=== PATIENT | male | born 1950 | race Caucasian/White ===

== ENCOUNTER → 2016-10-12 | Outpatient (CLI) | payer OTHER, MEDICARE ==
[~2016-10-12] MED LIST: ASPEC325 PO; ATOR-22 PO; CINN1CAP2 PO; CLX20; GLC500; OMEGCAP2; OXYC7.5T78 PO; TAMS0.4C38 PO
--- NOTE | 2016-10-13 05:50 | PAP/PSG TECHNICIAN REPORT ---
[facility] Credit Collection Associate Polysomnogram Report Study name: None Report date: 10/13/2016 Study date: 10/12/2016 Referring Physician: Jagdeep Gonzalez Pulmonary Name: ANTONIA AYALA Interpreting Physician: Lj Gutierrez M.D. Date of : 1950 Credit Collection Associate: Mouna Maher RPSGT. Sex: Male Age: 66 StudyType: PSG Weight: 209 lbs Height: 66 years, Height 5' 8" Neck Circum:17inches BMI: 31.77 Medications: ASA 81mg, Atorvastatin 20mg, Escitalopram 20mg, Fexofenadine HCl 180mg, Lisinopril 5mg, Oxycodone-Acetaminophen 5-325mg, Tamsulosin HCl 0.4mg Patient History Study started on room air with no ETCO2 monitoring in room #6. 66 yr old male here tonight for a diagnostic psg. He has a history of a closed head injury (he fell off of a ladder) and DM. He snores and has witnessed apnea. His neck circ=17inches. Parameters Monitored NPSG: E1-M2, E2-M1, Fp1-M2, Fp2-M1, F3-M2, F4-M2, F4-M1, C3-M2, C4-M2, C4-M1, O1-M2, O2-M2, O2-M1, T3-M2, T4-M1, P3-M2, P4-M1, CHIN1, CHIN2, HR, EKG, Legs, PFLOW, SNOR, FLOW, CFLOW, Tidal Volume, THOR, ABDO, SpO2, PLTH, CPRESS, ETCO2 Wave, ETCO2, pH Sleep Architecture Sleep Stages Time at Lights Off 8:56:33 PM STAGES Time (min.) TST (%) Time at Lights On 5:38:03 AM Wake 137.5 -- Total Recording Time (TRT) 507.00 min. N1 42.0 11 Total Sleep Period (TSP) 436.5 min. N2 266.5 72 Total Sleep Time (TST) 369.5min. N3 21.0 6 Awake Time 137.5 min. REM 40.0 11 Wake after Sleep Onset 81.5 min. Sleep Efficiency (SE) 73 % Sleep Onset Latency (MODE) 70.5 min. Number of Stage 1 Shifts None Awakenings 30 Stage Changes 143 Number of REM periods 3 REM 40.0 11 REM Latency 288.0 min. NREM 329.5 89 Body Position Analysis Supine Right Left Side Prone Vertical Total Sleep Time (min.) 100.8 110.7 201.8 312.47 0.0 0.0 Total Sleep Time (%) 15% 30% 55% 85 0% N/A% Total Sleep Time REM (min.) 0.0 3.5 36.5 None 0.0 0.0 Total Sleep Time NREM (min.) 57.0 107.2 165.3 None 0.0 0.0 Intermittent Wake (min.) 43.8 13.1 80.6 None 0.0 0.0 Total Sleep Period (%) 17% None None None None None Arousals Myoclonus (PLM) * Events Count Index Events Count Index Spontaneous 17 3 Events Awake (PLMW) 336 146.6 Respiratory 2 0.3 Events Asleep w/ Arousal (PLMA) 44 7.1 PLM 43 7 Events Asleep w/o Arousal (PLMS) 417 67.7 Snoring 7 1 Total Asleep 461 74.9 Total 69 11 Total 797 94 Respiratory Analysis * CA OA MA CH H RERA Total Count 2 0 0 0 5 0 7 Index 0.3 0.0 0.0 0 0.8 0 1.1 Mean Duration 12.2 0.0 0.0 0.00 40.1 0.0 32.1 Longest Duration 12.3 0.0 0.0 0.00 0.0 0.0 63.2 Respiratory Event Summary Total Supine ~Supine Right Left Prone REM NREM Apneas Count 2 0 2 0 2 N/A 2 0 Index 0.3 0 0 0.0 0.6 N/A 3 0 Hypopneas (4% Desat) Count 5 3 2 1 1 N/A 0 5 Index 0.8 3.2 0 0.5 0.3 N/A 0.0 0.9 Apneas & All Hypopneas Count 7 3 4 1 3 N/A 2 5 Index 1.1 3 1 1 1 N/A 3.0 0.9 Respiratory Events (Plaster Maker+All Hyp+RERA) Count 7 3 4 1 3 N/A 2 5 Index 1.1 3 1 0.5 0.9 N/A 3.0 0.9 Respiratory Related Arousal Count 2 3 0 0 0 N/A 0 2 Index 0.3 2 0 0 0 N/A 0 0 Snoring Analysis Supine Right Left Prone REM NREM Total Snore duration 21.2 min Snores count 247 455 236 N/A 1 937 938 Snore mean duration 1.4 Sec Snores index 260 247 70 N/A 1.5 170.6 152.3 TST with snoring (%) 5.7% Desaturation Event Summary: Minimum %SpO2 Event Count Mean/Min/Max Duration(sec.) Desaturation Index % Time In Bed > 90 15 24.2 / 11.5 / 52.5 4.3 43.3 86 - 90 8 25.4 / 6.5 / 52.5 1.8 56.5 81 - 85 1 9.3 / 9.3 / 9.3 90.6 0.1 76 - 80 0 N/A 0.0 0.0 71 - 75 0 N/A 0.0 0.0 66 - 70 0 N/A 0.0 0.0 61 - 65 0 N/A 0.0 0.0 56 - 60 0 N/A 0.0 0.0 51 - 55 0 N/A 0.0 0.0 < 50 0 N/A 0.0 0.0 Total REM NREM Awake <50% 0.0 min. 0.0 min. 0.0 min. 0.0 min. 51 - 60% 0.0 min. 0.0 min. 0.0 min. 0.0 min. 61 - 70% 0.0 min. 0.0 min. 0.0 min. 0.0 min. 71 - 80% 0.0 min. 0.0 min. 0.0 min. 0.0 min. 81 - 90% 270.6 min. 21.9 min. 189.8 min. 59.0 min. 91 - 100% 207.0 min. 17.4 min. 125.8 min. 63.7 min. Average 90 90 90 91 Minimum SpO2 82 87 82 82 Desaturation Event Index 2.2 0.0 1.8 4.8 # Desat. Events below 89% 9 N/A 5 4 Time(%) with Saturation below 89% 6.3 0.1 5.2 1.0 Time(min.) with Saturation below 89% 30.3 0.7 24.6 5.0 Time (mins) REM (mins) NREM (mins) % of TST SpO2 Below 90% 9 N/A N9 23.3 SpO2 Below 88% 3 0 0 1 Heart Rate Analysis Min (bpm) Max (bpm) Average (bpm) Awake 37 173 57 NREM 44 145 52 REM 44 60 50 Overall 44 145 52 Supplemental O2 Values Minimum O2 level: None Value Start Time End Time Credit Collection Associate Comments Mr. Ayala slept in the right, left and supine positions. No cardiac arrhythmia noted. PLM's noted. No bruxism noted. Snoring was noted and scored as a 2 on a scale of 1 through 5. (0=no snoring, 5=snoring loud enough to be heard through a closed door or down the thao way). He awoke to use the restroom 1 time during the night. He stated that he slept worse than when at home. The final report will be interpreted and signed by a sleep physician. The completed physician report will then be placed in the patient medical record. Therapy (cm H2O) 0 TIB (min.) 507.0 TST (min.) 369.5 Sleep Onset (min.) 70.5 REM Onset From Sleep (min.) 288.0 Sleep Efficiency % 73 Wakefulness (%) 26 Wakefulness (min.) 137.5 NREM 1 (%) 11 NREM 1 (min.) 42.0 NREM 2 (%) 72 NREM 2 (min.) 266.5 NREM 3 (%) 6 NREM 3 (min.) 21.0 REM (%) 11 REM (min.) 40.0 # Arousals 69 Arousal Index 11 # Snore 938 Snore Index 152.3 AHI 1.1 AHI Supine 3 AHI Non-Supine 1 NREM AHI 0.9 REM AHI 3.0 RDI 1.1 # Obstructive Apnea 0 # Central Apnea 2 # Mixed Apnea 0 # Hypopneas 5 RERAs 0 Total Respiratory Events 10 Time Below SpO2 89% (min.) 25.3 Mean NREM SpO2 (%) 90 Mean REM SpO2 (%) 90 Mean Sleep SpO2 (%) 90 Min NREM SpO2 (%) 82 Min REM SpO2 (%) 87 Position Supine (min.) 100.8 Position Non-supine (min.) 312.5 LM Index Sleep 74.9 LM Index NREM 83.0 LM Index REM 7.5 Mean Heart Rate (bpm) 52 Min Heart Rate (bpm) 44
--- NOTE | 2016-10-14 02:59 | POLYSOMNOGRAPH REPORT ---
CLINICAL DATA: A 66-year-old male with BMI of 31.8, referred by Dr. Gonzalez and Dr. Edgar Tsang for a sleep study. The patient has a history of closed head injury with snoring and witnessed apnea. SLEEP ARCHITECTURE: Total sleep period was 436.5 minutes. Total sleep time was 369.5 minutes divided between 329.5 minutes of non-REM sleep and 40 minutes of REM sleep. Sleep onset latency was delayed at 70.5 minutes. REM latency was delayed at 288 minutes. Sleep efficiency was reduced at 73%. Wake after sleep onset was 81.5 minutes. Sleep consisted of stage N1 11%, N2 72%. N3 6%, REM 11%. AROUSAL DATA: 69 arousals were recorded for an index of 11 per hour. 43 were due to PLM events. PLM DATA: Markedly elevated limb movements during sleep were noted. There were 461 limb movements during sleep noted for an index of 75 per hour with an arousal index of 7.1 per hour. RESPIRATORY DATA: No significant sleep apnea was seen. AHI was 1.1. There were 2 central apneic episodes. The longest apneic episode was 12.3 seconds. There were 5 hypopneic episodes. The mean duration of hypopnea was 40.1 seconds. OXIMETRY DATA: No significant hypoxemia was seen. Oxygen marline was 82% during non-REM sleep. Mean saturation was 90%. Time below 88% was 3 minutes. EKG: Heart rates ranged from 44-145 beats per minute. No arrhythmias were noted. GRADALL OPERATOR'S COMMENTS: The patient slept in the right, left, and supine positions. Snoring was moderate, rated 2 on a scale of 1-5. He did have frequent PLMs through the night with arousals and fragmentation of sleep architecture. IMPRESSION: 1. No evidence of clinically significant sleep apnea/hypopnea or nocturnal hypoxemia. 2. Very frequent limb movement events during sleep consistent with severe periodic limb movement disorder with frequent arousals. RECOMMENDATIONS: If clinically indicated, the patient could be considered for workup and evaluation for restless leg syndrome/PLMD and possible treatment. Clinical correlation is needed. QUINCYD
== END | disposition home or self-care (01) ==
LOC: C.NEUR 20:00
PROVIDERS: ATTEND Internal Medicine Pulmonary Disease
DX: G47.30 Sleep apnea, unspecified (principal)

== ENCOUNTER → 2016-10-18 | Outpatient (CLI) | payer OTHER, MEDICARE ==
[2016-10-18 13:28] LABS: ALT/SGPT 30 U/L (12-78); AST/SGOT 18 U/L (15-37); BLOOD UREA NITROGEN 14 mg/dl (7-18); BUN/CREATININE RATIO 17.7 (10-20); CALCIUM 8.7 mg/dl (8.5-10.1); CARBON DIOXIDE 28 mmol/L (21-32); CHLORIDE 104 mmol/L (98-107); CHOLESTEROL 110 mg/dl (0-200); CREATININE 0.81 mg/dl (0.60-1.40); GLUCOSE 91 mg/dl (70-99); POTASSIUM 4.5 mmol/L (3.5-5.1); SODIUM 138 mmol/L (136-145)
[2016-10-18 13:32] LABS: CHOLESTEROL/HDL RATIO 2.5; HDL CHOLESTEROL 44 mg/dl; LDL CHOLESTEROL CALCULATED 56 mg/dl; PROSTATE SPECIFIC ANTIGEN 0.554 ng/ml (0.000-4.000); TRIGLYCERIDES 51 mg/dl (0-150); VERY LOW DENSITY LIPOPROT CALC 10 mg/dl
[2016-10-18 13:52] LABS: ESTIMATED AVERAGE GLUCOSE 120 mg/dl; HA1C FLAG Normal (Normal)
== END | disposition home or self-care (01) ==
LOC: C.LABMFLN 09:01
PROVIDERS: ATTEND Family Medicine
DX: E78.00 Pure hypercholesterolemia, unspecified (principal); E11.40 Type 2 diabetes mellitus with diabetic neuropathy, unspecified; Z12.5 Encounter for screening for malignant neoplasm of prostate

== ENCOUNTER → 2016-10-24 | Outpatient (CLI) | payer OTHER, MEDICARE ==
[~2016-10-24] VITALS: Ht 170.2 cm; Wt 95.3 kg
[2016-10-24 15:32] VITALS: BP 126/75; PULSE 66; Ht 170.2 cm; Wt 95.3 kg
== END | disposition home or self-care (01) ==
LOC: C.NEUR 13:55
PROVIDERS: ATTEND Internal Medicine Pulmonary Disease
DX: G47.61 Periodic limb movement disorder (principal)

== ENCOUNTER → 2017-04-19 | Outpatient (CLI) | payer OTHER, MEDICARE ==
[2017-04-19 13:25] LABS: ESTIMATED AVERAGE GLUCOSE 123 mg/dl; HA1C FLAG Normal (Normal)
[2017-04-19 13:37] LABS: ALT/SGPT 30 U/L (12-78); AST/SGOT 20 U/L (15-37); BLOOD UREA NITROGEN 12 mg/dl (7-18); BUN/CREATININE RATIO 13.3 (10-20); CALCIUM 8.6 mg/dl (8.5-10.1); CARBON DIOXIDE 28 mmol/L (21-32); CHLORIDE 106 mmol/L (98-107); CHOLESTEROL 113 mg/dl (0-200); CREATININE 0.91 mg/dl (0.60-1.40); GLUCOSE 106 mg/dl (70-99); POTASSIUM 4.2 mmol/L (3.5-5.1); SODIUM 140 mmol/L (136-145)
[2017-04-19 13:42] LABS: ALB/GLOB RATIO 1.2 (0.9-2); ALKALINE PHOSPHATASE 86 U/L (45-117); CHOLESTEROL/HDL RATIO 3.1; HDL CHOLESTEROL 37 mg/dl; LDL CHOLESTEROL CALCULATED 59 mg/dl; TRIGLYCERIDES 84 mg/dl (0-150); VERY LOW DENSITY LIPOPROT CALC 17 mg/dl
== END | disposition home or self-care (01) ==
LOC: C.LABMFLN 08:37
PROVIDERS: ATTEND Family Medicine
DX: I25.10 Atherosclerotic heart disease of native coronary artery without angina pectoris (principal); E11.40 Type 2 diabetes mellitus with diabetic neuropathy, unspecified

== ENCOUNTER 2017-07-12 12:04 | Emergency (ER) | payer OTHER, MEDICARE ==
[~2017-07-12] VITALS: Ht 170.2 cm; Wt 88.9 kg
[2017-07-12 12:06] VITALS: TEMP 36.7; Ht 170.2 cm; Wt 88.9 kg
[2017-07-12] MEDS ORDERED: SODIUM CHLORIDE 0.9% 1000ML 1,000 ML IV STA (12:39)
[2017-07-12] MEDS ORDERED: OPTIRAY 320 IV PRN (12:45)
[2017-07-12 13:19] LABS: URINE APPEARANCE CLEAR (CLEAR); URINE BILIRUBIN NEG (NEG); URINE COLOR YELLOW; URINE EPITHELIAL CELL AUTO 0-5 /lpf (0-5); URINE NITRITE NEG (NEG); URINE SPECIFIC GRAVITY 1.017 (1.000-1.030); UROBILINOGEN NEG (NEG); ZZUR CULT IF INDIC CLEAN CATCH NO
[2017-07-12 13:20] LABS: MANUAL MICROSCOPIC REQUIRED? NO; REVIEW REQ? NO
[2017-07-12] MEDS ORDERED: KLN5X PO (13:21)
[2017-07-12] MEDS ORDERED: FLM4 PO (13:21)
[2017-07-12] MEDS ORDERED: LSN5 PO (13:21)
[2017-07-12] MEDS ORDERED: ASPI81TA28 PO (13:21)
[2017-07-12] MEDS ORDERED: LXP/20 PO (13:21)
[2017-07-12 13:22] LABS: BASO % 0.4 %; BASO ABS # 0.04 K/uL (0-0.2); COMPLETE YES; EOS % 1.7 %; HEMATOCRIT 41.8 % (42-52); IG% 0.3 %; LYMPH % 12.4 %; LYMPH ABS # 1.28 K/uL (1.2-3.4); MEAN CELL VOLUME 92.9 fL (80-100); MEAN CORPUSCULAR HGB CONC 34.4 g/dl (32-36); MEAN PLATELET VOLUME 10.7 fL (7.4-10.4); MONO % 8.1 %; NEUT % 77.1 %; PLATELET COUNT 307 K/uL (130-400); WHITE BLOOD COUNT 10.34 K/uL (4.8-10.8)
[2017-07-12 13:30] LABS: BUN/CREATININE RATIO 19.9 (10-20); CALCIUM 8.9 mg/dl (8.5-10.1); CREATININE 0.81 mg/dl (0.60-1.40); POTASSIUM 4.4 mmol/L (3.5-5.1)
--- NOTE | 2017-07-12 15:37 | DIAGNOSTIC IMAGING REPORT ---
ABDOMEN AND PELVIS CT WITH IV CONTRAST CT DOSE: 613.14 mGy.cm HISTORY: Acute generalized abdominal pain. Initial exam abd pain TECHNIQUE: Multiaxial CT images of the abdomen and pelvis were performed following the use of intravenous contrast. A dose lowering technique was utilized adhering to the principles of ALARA. COMPARISON STUDY: None. FINDINGS: Imaged cardiac chambers are moderately enlarged. Coronary arterial calcifications are noted. Subpleural reticular opacities of the lung bases, left greater than right suggest atelectasis. There are a few nodular and groundglass opacities of the lung bases measuring up to 4 mm with some tree-in-bud nodularity suggesting bronchiolitis. Mild bronchial wall thickening also noted within the lung bases. No pneumoperitoneum. There are a few scattered indeterminate low attenuating lesions throughout the liver within both the right and left hepatic lobes, largest of which measures 11 mm within the right hepatic lobe, image 10 series 2. No intrahepatic biliary ductal dilation. Spleen is unremarkable. Moderate pancreatic atrophy. There are a few low attenuating subcentimeter lesions of the right kidney, largest of which measures 5 mm suggesting renal cysts, however too small to characterize. Kidneys, ureters and urinary bladder are unremarkable otherwise. Prostamegaly. The urinary bladder is unremarkable. Post surgical changes of the right scrotal region. There is moderate atherosclerotic plaquing of the abdominal aorta. No aneurysm or dissection. Multifocal hazy enlarged lymph nodes are seen within the retroperitoneum periaortic and aortocaval distribution. Example, periaortic lymph node measuring 2.1 x 1.5 cm seen on image 171 series 3. Aortocaval lymph node on image 193 series 3 measures 1.6 x 1.3 cm. Enlarged gastrohepatic lymph node measures 2.3 x 1.8 cm on image 100 series 3. Prominent periportal lymph nodes also seen. There is haziness and nodularity within the distribution of the gastrohepatic ligament. There is mild soft tissue thickening within the region of the gastroesophageal junction and gastric cardia without discrete mass identified. No bowel obstruction. Moderate volume of formed stool is seen throughout the large bowel. No evidence of acute appendicitis. Soft tissues are unremarkable. There is an indeterminate peripherally sclerotic lucent lesion of the left ilium, 1.8 x 1.2 cm adjacent to the SI joint. Lucent structure of the left anterior femoral head neck junction suggests synovial herniation pit. Endplate changes are seen throughout the thoracolumbar spine. IMPRESSION: 1. Multiple pathologically enlarged lymph nodes of the retroperitoneum with surrounding fat stranding are noted in addition to enlarged gastrohepatic and prominent periportal lymph nodes, suspicious for metastasis or lymphoproliferative disease. 2. Soft tissue thickening of the gastroesophageal junction and gastric cardia without discrete mass is noted which can be correlated with endoscopy. 3. Multiple low attenuating lesions scattered throughout the liver measuring up to 11 mm are suspicious for possible metastasis. Attention at follow-up recommended. 4. Prostamegaly. 5. Subpleural reticular and nodular opacities of the lung bases suggest infectious or inflammatory bronchiolitis/pneumonitis. Electronically signed by: Peng Allen M.D. 07/12/2017 3:36 PM Dictated Date/Time: 07/12/2017 3:23 PM
[2017-07-12 16:42] VITALS: BP 157/86; PULSE 58; O2SAT 97
--- NOTE | 2017-07-12 16:46 | DIAGNOSTIC IMAGING REPORT ---
CHEST ONE VIEW PORTABLE CLINICAL HISTORY: ? metastatic ca dyspnea COMPARISON STUDY: No previous studies for comparison. FINDINGS: Heart top limits of normal in terms size. Diaphragms are smooth. Lungs are clear. Old healed fracture left seventh rib. Postoperative changes left shoulder. IMPRESSION: No acute process. Chronic change. The above report was generated using voice recognition software. It may contain grammatical, syntax or spelling errors. Electronically signed by: Shon Wu M.D. 07/12/2017 4:44 PM Dictated Date/Time: 07/12/2017 4:43 PM
--- NOTE | 2017-07-12 17:28 | EMERGENCY ROOM VISIT NOTE ---
History Report prepared by Yashira: Sharri Mckenzie Under the Supervision of: Dr. Jose Juan Mcclain D.O. First contact with patient: 12:33 Chief Complaint: CONSTIPATION Stated Complaint: CONSTIPATION Nursing Triage Summary: PT c/o constipation x 3 weeks, minimal results with enema, pt c/o abdominal discomfort and bloating with occasional nausea and lack of appetite. History of Present Illness The patient is a 67 year old male who presents to the Emergency Room with complaints of persistent constipation starting 3 weeks ago. The patient's last bowel movement was 2 days ago. He describes the bowel movement as "3 little peas ". His previous bowel movement before that was 6 days ago and he describes it as "4 little peas". He has been constipated before, but it was usually when he travels. He has never been constipated to this degree. He has tried Ex-lax, miralax, and 2 enemas to no relief. He has mid abdominal pain which started last week. It feels like bloating and is sharp at time. He has some intermittent nausea. Pt denies headache, change in vision, fevers, chest pain, shortness of breath, vomiting, diarrhea, pain with urination, and melena. He has had an appendectomy. Source of History: patient, spouse/significant other Onset: 3 weeks ago Position: other (global) Quality: other (constipation) Timing: other (persistent) Associated Symptoms: + nausea, + abdominal pain, No fevers, No headache, No chest pain, No SOB, No vomiting, No melena, No diarrhea, No urinary symptoms Review of Systems See HPI for pertinent positives & negatives. A total of 10 systems reviewed and were otherwise negative. Past Medical & Surgical Medical Problems: (1) Diabetes (2) s/p orif scapula Surgical Problems: (1) S/P appendectomy Family History Diabetes mellitus FH: cancer FH: heart disease Hypertension Seizures Social History Smoking Status: Current Every Day Smoker Alcohol Use: none Marital Status: Housing Status: lives with significant other Current/Historical Medications Scheduled Aspirin (Aspirin Ec), 81 MG PO DAILY Cinnamon (Cinnamon), 1,000 MG PO DAILY Clonazepam (Clonazepam), 1 TAB PO HS Escitalopram Oxalate (Escitalopram Oxalate), 1 TAB PO DAILY Lisinopril (Lisinopril), 1 TAB PO DAILY Paramount-3 Fatty Acids (Fish Oil), DAILY Tamsulosin HCl (Tamsulosin HCl), 1 CAP PO DAILY Allergies Coded Allergies: No Known Allergies (Unverified , 07/12/17) Physical Exam Vital Signs Date Time Temp Pulse Resp B/P (MAP) Pulse Ox O2 Delivery O2 Flow Rate FiO2 07/12/17 16:42 58 20 157/86 97 Room Air 07/12/17 12:06 36.7 66 18 124/79 96 Room Air Physical Exam GENERAL: Sitting up in bed, alert, well appearing, well nourished, no distress, non-toxic EYE EXAM: normal conjunctiva. OROPHARYNX: no exudate, no erythema, lips, buccal mucosa, and tongue normal and mucous membranes are moist NECK: supple, no nuchal rigidity, no adenopathy, non-tender LUNGS: Clear to auscultation. Normal chest wall mechanics HEART: no murmurs, S1 normal and S2 normal ABDOMEN: abdomen soft, minimal diffuse tenderness, normo-active bowel sounds, no masses, no rebound or guarding. BACK: Back is symmetrical on inspection and there is no deformity, no midline tenderness, no CVA tenderness. SKIN: no rashes and no bruising UPPER EXTREMITIES: upper extremities are grossly normal. LOWER EXTREMITIES: No pitting edema. NEURO EXAM: Normal sensorium, cranial nerves II-XII grossly intact, normal speech, no gross weakness of arms, no gross weakness of legs. Medical Decision & Procedures ER Provider Diagnostic Interpretation: Radiology results as stated below per my review and the radiologist's interpretation: CHEST ONE VIEW PORTABLE CLINICAL HISTORY: ? metastatic ca dyspnea COMPARISON STUDY: No previous studies for comparison. FINDINGS: Heart top limits of normal in terms size. Diaphragms are smooth. Lungs are clear. Old healed fracture left seventh rib. Postoperative changes left shoulder. IMPRESSION: No acute process. Chronic change. The above report was generated using voice recognition software. It may contain grammatical, syntax or spelling errors. Electronically signed by: Shon Wu M.D. 07/12/2017 4:44 PM Dictated Date/Time: 07/12/2017 4:43 PM ABDOMEN AND PELVIS CT WITH IV CONTRAST CT DOSE: 613.14 mGy.cm HISTORY: Acute generalized abdominal pain. Initial exam abd pain TECHNIQUE: Multiaxial CT images of the abdomen and pelvis were performed following the use of intravenous contrast. A dose lowering technique was utilized adhering to the principles of ALARA. COMPARISON STUDY: None. FINDINGS: Imaged cardiac chambers are moderately enlarged. Coronary arterial calcifications are noted. Subpleural reticular opacities of the lung bases, left greater than right suggest atelectasis. There are a few nodular and groundglass opacities of the lung bases measuring up to 4 mm with some tree-in-bud nodularity suggesting bronchiolitis. Mild bronchial wall thickening also noted within the lung bases. No pneumoperitoneum. There are a few scattered indeterminate low attenuating lesions throughout the liver within both the right and left hepatic lobes, largest of which measures 11 mm within the right hepatic lobe, image 10 series 2. No intrahepatic biliary ductal dilation. Spleen is unremarkable. Moderate pancreatic atrophy. There are a few low attenuating subcentimeter lesions of the right kidney, largest of which measures 5 mm suggesting renal cysts, however too small to characterize. Kidneys, ureters and urinary bladder are unremarkable otherwise. Prostamegaly. The urinary bladder is unremarkable. Post surgical changes of the right scrotal region. There is moderate atherosclerotic plaquing of the abdominal aorta. No aneurysm or dissection. Multifocal hazy enlarged lymph nodes are seen within the retroperitoneum periaortic and aortocaval distribution. Example, periaortic lymph node measuring 2.1 x 1.5 cm seen on image 171 series 3. Aortocaval lymph node on image 193 series 3 measures 1.6 x 1.3 cm. Enlarged gastrohepatic lymph node measures 2.3 x 1.8 cm on image 100 series 3. Prominent periportal lymph nodes also seen. There is haziness and nodularity within the distribution of the gastrohepatic ligament. There is mild soft tissue thickening within the region of the gastroesophageal junction and gastric cardia without discrete mass identified. No bowel obstruction. Moderate volume of formed stool is seen throughout the large bowel. No evidence of acute appendicitis. Soft tissues are unremarkable. There is an indeterminate peripherally sclerotic lucent lesion of the left ilium, 1.8 x 1.2 cm adjacent to the SI joint. Lucent structure of the left anterior femoral head neck junction suggests synovial herniation pit. Endplate changes are seen throughout the thoracolumbar spine. IMPRESSION: 1. Multiple pathologically enlarged lymph nodes of the retroperitoneum with surrounding fat stranding are noted in addition to enlarged gastrohepatic and prominent periportal lymph nodes, suspicious for metastasis or lymphoproliferative disease. 2. Soft tissue thickening of the gastroesophageal junction and gastric cardia without discrete mass is noted which can be correlated with endoscopy. 3. Multiple low attenuating lesions scattered throughout the liver measuring up to 11 mm are suspicious for possible metastasis. Attention at follow-up recommended. 4. Prostamegaly. 5. Subpleural reticular and nodular opacities of the lung bases suggest infectious or inflammatory bronchiolitis/pneumonitis. Electronically signed by: Peng Allen M.D. 07/12/2017 3:36 PM Dictated Date/Time: 07/12/2017 3:23 PM Laboratory Results 07/12/17 13:00 Red Blood Count 4.50, Mean Corpuscular Volume 92.9, Mean Corpuscular Hemoglobin 32.0, Mean Corpuscular Hemoglobin Concent 34.4, Mean Platelet Volume 10.7, Neutrophils (%) (Auto) 77.1, Lymphocytes (%) (Auto) 12.4, Monocytes (%) (Auto) 8.1, Eosinophils (%) (Auto) 1.7, Basophils (%) (Auto) 0.4, Neutrophils # (Auto) 7.97, Lymphocytes # (Auto) 1.28, Monocytes # (Auto) 0.84, Eosinophils # (Auto) 0.18, Basophils # (Auto) 0.04 07/12/17 13:00 Test 07/12/17 13:00 White Blood Count 10.34 K/uL (4.8-10.8) Red Blood Count 4.50 M/uL (4.7-6.1) Hemoglobin 14.4 g/dL (14.0-18.0) Hematocrit 41.8 % (42-52) Mean Corpuscular Volume 92.9 fL (80-100) Mean Corpuscular Hemoglobin 32.0 pg (25-34) Mean Corpuscular Hemoglobin Concent 34.4 g/dl (32-36) Platelet Count 307 K/uL (130-400) Mean Platelet Volume 10.7 fL (7.4-10.4) Neutrophils (%) (Auto) 77.1 % Lymphocytes (%) (Auto) 12.4 % Monocytes (%) (Auto) 8.1 % Eosinophils (%) (Auto) 1.7 % Basophils (%) (Auto) 0.4 % Neutrophils # (Auto) 7.97 K/uL (1.4-6.5) Lymphocytes # (Auto) 1.28 K/uL (1.2-3.4) Monocytes # (Auto) 0.84 K/uL (0.11-0.59) Eosinophils # (Auto) 0.18 K/uL (0-0.5) Basophils # (Auto) 0.04 K/uL (0-0.2) RDW Standard Deviation 48.2 fL (36.4-46.3) RDW Coefficient of Variation 14.2 % (11.5-14.5) Immature Granulocyte % (Auto) 0.3 % Immature Granulocyte # (Auto) 0.03 K/uL (0.00-0.02) Urine Color YELLOW Urine Appearance CLEAR (CLEAR) Urine pH 6.0 (4.5-7.5) Urine Specific [place] 1.017 (1.000-1.030) Urine Protein NEG (NEG) Urine Glucose (UA) NEG (NEG) Urine Ketones NEG (NEG) Urine Occult Blood NEG (NEG) Urine Nitrite NEG (NEG) Urine Bilirubin NEG (NEG) Urine Urobilinogen NEG (NEG) Urine Leukocyte Esterase NEG (NEG) Urine WBC (Auto) 1-5 /hpf (0-5) Urine RBC (Auto) 0-4 /hpf (0-4) Urine Hyaline Casts (Auto) 0 /lpf (0-5) Urine Epithelial Cells (Auto) 0-5 /lpf (0-5) Urine Bacteria (Auto) NEG (NEG) Anion Gap 4.0 mmol/L (3-11) Est Creatinine Clear Calc Drug Dose 91.6 ml/min Estimated GFR () 105.1 Estimated GFR (Non- 90.7 BUN/Creatinine Ratio 19.9 (10-20) Calcium Level 8.9 mg/dl (8.5-10.1) Total Bilirubin 0.7 mg/dl (0.2-1) Direct Bilirubin 0.2 mg/dl (0-0.2) Aspartate Amino Transf (AST/SGOT) 9 U/L (15-37) Alanine Aminotransferase (ALT/SGPT) 20 U/L (12-78) Alkaline Phosphatase 105 U/L (45-117) Total Protein 7.4 gm/dl (6.4-8.2) Albumin 3.7 gm/dl (3.4-5.0) Lipase 83 U/L (73-393) Laboratory results per my review. Medications Administered Medications (Trade) Dose Ordered Sig/Agnieszka Route Start Time Stop Time Status Last Admin Dose Admin Sodium Chloride 1,000 ml @ 999 mls/hr Q1H1M STAT IV 07/12/17 12:39 07/12/17 13:39 DC 07/12/17 13:04 999 MLS/HR ED Course ED COURSE: Vital signs were reviewed and showed hypertension. The patients medical record was reviewed The above diagnostic studies were performed and reviewed. ED treatments and interventions as stated above. 1237: The patient was evaluated in room B5. A complete history and physical examination was performed. 1239: NSS 1000 ml @ 999 mls/hr IV. 1600: I reevaluated the patient. I updated him on the results. 1612: I discussed the patient's case with Dr. Stanford, [facility] [place] Hematology/Medical Oncology. He recommends follow up as an outpatient. 1649: Upon reevaluation, the patient is resting comfortably. I discussed my findings with the patient and he understands and agrees with the treatment plan. Based on the patients age, coexisting illnesses, exam and lab findings the decision to treat as an outpatient was made. The patient remained stable while under my care. The patient appeared well at the time of discharge. Medical Decision Differential diagnoses includes but is not limited to gastritis, peptic ulcer disease, GERD, gallbladder disease, pancreatitis, small bowel obstruction, acute coronary syndrome, pericarditis, ischemic bowel, irritable bowel disease, irritable bowel syndrome, appendicitis, diverticulitis, malignancy, hernia, urinary tract infection, torsion, perforation, trauma, infectious. Patient is a 67-year-old male who presents to ER for abdominal pain which feels like constipation. He has been having trouble moving his bowels. Pain is diffuse. No other significant past medical history. On exam he has mild tenderness. CT of abdomen and pelvis shows diffuse likely metastatic disease with liver masses and enlarged lymph nodes. It did suggest a possible pneumonitis. Patient has no upper esterase symptoms. CBC all BMP, LFTs, bilirubin lipase is unremarkable. UA was negative. Patient was updated regards to findings. Chest x-ray was unremarkable. Updated family at bedside. Gave instructions for constipation. Contacted hematology/oncology for follow- up. Patient was given close follow-up with Dr. Stanford. Discussed with Pt concerning signs and symptoms to watch out for. Pt was instructed to follow up with their PCP and discussed with the patient their option to return to the ED at anytime for persistent or worsening symptoms. The appropriate anticipatory guidance and out-patient management, including indications for return to the emergency department, were explained at length to the patient and understood. Medication Reconcilliation Current Medication List: was personally reviewed by me Blood Pressure Screening Patient's blood pressure: Elevated blood pressure Blood pressure disposition: Elevated BP felt to be situational Consults Time Called: 1604 Consulting Physician: Dr. Stanford, [facility] [place] Hematology/Medical Oncology Returned Call: 1612 I discussed the patient's case with him. He recommends follow up as an outpatient. Impression Primary Impression: Abdominal pain Additional Impression: Metastatic cancer Scribe Attestation The scribe's documentation has been prepared under my direction and personally reviewed by me in its entirety. I confirm that the note above accurately reflects all work, treatment, procedures, and medical decision making performed by me. Departure Information Dispostion Home / Self-Care Referrals Reddy Stanford D.O. Fowler, Eric M.D. Forms HOME CARE DOCUMENTATION FORM, IMPORTANT VISIT INFORMATION Patient Instructions ED Constipation, My [facility] Additional Instructions Please follow up with your primary care doctor with in the next 24 hours. Any worsening of your symptoms, please return to the ED immediately. This includes any fevers greater than 100.4, worsening pain, chest pain, shortness breath, persistent nausea, vomiting, unable to eat or drink, or any other concerning signs or symptoms from your standpoint. Please take 250 g of MiraLAX and mix and 64 ounces of Gatorade. Please drink 8 ounces every 15-30 minutes until he have a bowel movement. This can be repeated until he started having liquid stools. Please contact Dr. Stanford as listed below for follow-up for the enlarged abdominal lymph nodes and liver masses Problem Qualifiers Primary Impression: Abdominal pain Abdominal location: unspecified location Qualified Codes: R10.9 - Unspecified abdominal pain
== END 2017-07-12 17:00 | disposition home or self-care (01) ==
LOC: C.EDB 12:06
DX: R10.9 Unspecified abdominal pain (principal); C79.9 Secondary malignant neoplasm of unspecified site; E11.9 Type 2 diabetes mellitus without complications; Z83.3 Family history of diabetes mellitus; Z82.49 Family history of ischemic heart disease and other diseases of the circulatory system; Z82.0 Family history of epilepsy and other diseases of the nervous system; F17.200 Nicotine dependence, unspecified, uncomplicated; Z79.82 Long term (current) use of aspirin

== ENCOUNTER → 2017-07-20 | Outpatient (CLI) | payer OTHER, MEDICARE ==
[~2017-07-20] MED LIST changes: -ASPEC325 PO; +ASPI81TA28 PO; -ATOR-22 PO; -CLX20; +FLM4 PO; -GLC500; +KLN5X PO; +LSN5 PO; +LXP/20 PO; -OXYC7.5T78 PO; -TAMS0.4C38 PO
[2017-07-20 13:26] LABS: ESTIMATED AVERAGE GLUCOSE 120 mg/dl; HA1C FLAG Normal (Normal)
[2017-07-20 13:29] LABS: ALT/SGPT 17 U/L (12-78); BLOOD UREA NITROGEN 18 mg/dl (7-18); BUN/CREATININE RATIO 20.6 (10-20); CARBON DIOXIDE 28 mmol/L (21-32); CHLORIDE 101 mmol/L (98-107); CHOLESTEROL 177 mg/dl (0-200); CREATININE 0.88 mg/dl (0.60-1.40); GLUCOSE 102 mg/dl (70-99); POTASSIUM 4.2 mmol/L (3.5-5.1); SODIUM 135 mmol/L (136-145); TRIGLYCERIDES 84 mg/dl (0-150); VERY LOW DENSITY LIPOPROT CALC 17 mg/dl
[2017-07-20 13:32] LABS: ALKALINE PHOSPHATASE 111 U/L (45-117); AST/SGOT 12 U/L (15-37); CHOLESTEROL/HDL RATIO 4.4; HDL CHOLESTEROL 40 mg/dl; LDL CHOLESTEROL CALCULATED 120 mg/dl
== END | disposition home or self-care (01) ==
LOC: C.LABMFLN 10:25
PROVIDERS: ATTEND Family Medicine
DX: E78.00 Pure hypercholesterolemia, unspecified (principal); E11.9 Type 2 diabetes mellitus without complications

== ENCOUNTER → 2017-07-24 | Outpatient (CLI) | payer OTHER, MEDICARE ==
--- NOTE | 2017-07-24 09:28 | DIAGNOSTIC IMAGING REPORT ---
PET/CT HISTORY: ESOPHAGEAL CANCER TECHNIQUE: PET/CT was performed from the base of the skull through the pelvis following the intravenous administration of 13.7 mCi of F18-FDG. Non-contrast CT imaging was performed over the same range without breath-hold for attenuation correction of PET images and anatomic correlation, but not for primary interpretation as it is not of standard diagnostic quality. CT DOSE: 513.32 mGycm COMPARISON: Abdomen and pelvis CT 07/12/2017. FINDINGS: HEAD AND NECK: Symmetric FDG uptake throughout the brain. Left supraclavicular and infraclavicular lymphadenopathy with the largest lymph node measuring 2.6 x 1.4 cm. This demonstrates FDG uptake with an SUV max of 3. CHEST: Mild left axillary lymphadenopathy with the largest lymph node measuring 14 x 9 mm. This demonstrates an SUV max of 2.5. Borderline enlarged mediastinal lymph nodes with an SUV max of 2.2. There are borderline enlarged right hilar and bronchial FDG avid lymph nodes measuring and SUV max of 3.2. The lymph node involvement is consistent with metastatic disease. A few scattered subcentimeter pulmonary nodules seen within the lungs. These do not demonstrate FDG uptake but are likely below the threshold for PET imaging. Dominant nodules measure up to 4 mm in size. Dominant FDG avid precarinal lymph node measures 14 x 8 mm. ABDOMEN/PELVIS: There are 4 FDG avid hepatic lesions with the largest measuring 1.7 cm. This demonstrates an SUV max of 4.4. Intense FDG uptake at the thickened gastroesophageal junction/proximal stomach consistent with the patient's known malignancy. This demonstrates an SUV max of 8.9. A 2.4 x 1.7 cm FDG avid gastrohepatic lymph node demonstrating an SUV max of 4.2. There are multiple additional indistinct mildly enlarged FDG avid retroperitoneal lymph nodes which demonstrate an SUV max of 4. Subtle nodular thickening within the left retroperitoneal lining at the level of the kidney with minimal FDG uptake. This is highly suspicious for metastatic spread of disease/peritoneal carcinomatosis.. MUSCULOSKELETAL: There is no FDG-avid or destructive bone lesion. IMPRESSION: 1. Abnormal thickening and FDG uptake within the gastroesophageal junction/proximal stomach consistent with the patient's known malignancy. 2. Abnormal FDG uptake identified within multiple lymph nodes within the neck, chest, and abdomen as described above consistent with metastatic disease. 3. FDG avid hepatic metastatic lesions. 4. Subtle nodular thickening within the left retroperitoneal lining at the level of the kidney with minimal FDG uptake. This is highly suspicious for metastatic spread of disease/peritoneal carcinomatosis. 5. Multiple tiny pulmonary nodules seen throughout the lungs which are nonspecific. These do not demonstrate FDG uptake but are likely below the threshold for PET imaging. Metastatic disease remains the diagnosis of exclusion. Electronically signed by: Kendall Forte M.D. 07/24/2017 9:26 AM Dictated Date/Time: 07/24/2017 9:11 AM
== END | disposition home or self-care (01) ==
LOC: C.PET 06:45
PROVIDERS: ATTEND Internal Medicine Hematology & Oncology
DX: C15.5 Malignant neoplasm of lower third of esophagus (principal)

== ENCOUNTER → 2017-08-24 | Outpatient (CLI) | payer OTHER, MEDICARE ==
[2017-08-24 18:09] LABS: ALT/SGPT 76 U/L (12-78); AST/SGOT 48 U/L (15-37); BLOOD UREA NITROGEN 24 mg/dl (7-18); BUN/CREATININE RATIO 25.6 (10-20); CARBON DIOXIDE 34 mmol/L (21-32); CHLORIDE 91 mmol/L (98-107); CREATININE 0.93 mg/dl (0.60-1.40); GLUCOSE 112 mg/dl (70-99); POTASSIUM 3.1 mmol/L (3.5-5.1); SODIUM 129 mmol/L (136-145)
[2017-08-24 18:12] LABS: ALKALINE PHOSPHATASE 179 U/L (45-117)
[2017-08-24 18:13] LABS: BASO % 0.5 %; BASO ABS # 0.07 K/uL (0-0.2); COMPLETE YES; EOS % 0.5 %; HEMATOCRIT 40.5 % (42-52); IG% 0.5 %; LYMPH % 7.5 %; LYMPH ABS # 1.15 K/uL (1.2-3.4); MEAN CELL VOLUME 88.6 fL (80-100); MEAN CORPUSCULAR HEMOGLOBIN 31.5 pg (25-34); MEAN CORPUSCULAR HGB CONC 35.6 g/dl (32-36); MEAN PLATELET VOLUME 11.2 fL (7.4-10.4); MONO % 8.1 %; NEUT % 82.9 %; PLATELET COUNT 370 K/uL (130-400); RED BLOOD COUNT 4.57 M/uL (4.7-6.1); WHITE BLOOD COUNT 15.37 K/uL (4.8-10.8)
== END | disposition home or self-care (01) ==
LOC: C.LABMFLN 09:51
PROVIDERS: ATTEND Family Medicine
DX: R35.0 Frequency of micturition (principal); R80.9 Proteinuria, unspecified

== ENCOUNTER → 2017-09-15 | Outpatient (CLI) | payer OTHER, MEDICARE ==
[~2017-09-15] MED LIST changes: +LISI-730 PO; -LSN5 PO; +METH1LOZ PO; +MISC1CAP60 PO; +VITA1TAB4 PO; +[UNRECOGNIZED DRUG - OTHER] PO; +[UNRECOGNIZED DRUG - OTHER] PO
[2017-09-15 18:06] LABS: BASO % 0.4 %; BASO ABS # 0.05 K/uL (0-0.2); EOS % 0.7 %; EOS ABS # 0.09 K/uL (0-0.5); HEMATOCRIT 37.6 % (42-52); HEMOGLOBIN 13.1 g/dL (14.0-18.0); IG# 0.07 K/uL (0.00-0.02); LYMPH % 4.8 %; LYMPH ABS # 0.65 K/uL (1.2-3.4); MEAN CELL VOLUME 89.5 fL (80-100); MEAN CORPUSCULAR HEMOGLOBIN 31.2 pg (25-34); MEAN CORPUSCULAR HGB CONC 34.8 g/dl (32-36); MONO % 6.1 %; MONO ABS # 0.84 K/uL (0.11-0.59); NEUT % 87.5 %; NEUT ABS # 11.97 K/uL (1.4-6.5); PLATELET COUNT 165 K/uL (130-400); RED CELL DISTRIBUTION WIDTH CV 15.2 % (11.5-14.5); RED CELL DISTRIBUTION WIDTH SD 49.9 fL (36.4-46.3); WHITE BLOOD COUNT 13.67 K/uL (4.8-10.8)
[2017-09-15 18:41] LABS: ALBUMIN 2.8 gm/dl (3.4-5.0); ALT/SGPT 39 U/L (12-78); AST/SGOT 35 U/L (15-37); BLOOD UREA NITROGEN 17 mg/dl (7-18); CALCIUM 9.3 mg/dl (8.5-10.1); CARBON DIOXIDE 28 mmol/L (21-32); CREATININE 1.01 mg/dl (0.60-1.40); GLUCOSE 96 mg/dl (70-99); SODIUM 132 mmol/L (136-145)
[2017-09-15 18:52] LABS: ALKALINE PHOSPHATASE 281 U/L (45-117); TOTAL PROTEIN 6.7 gm/dl (6.4-8.2)
== END | disposition home or self-care (01) ==
LOC: C.LABMFLN 14:42
PROVIDERS: ATTEND Family Medicine
DX: E87.6 Hypokalemia (principal); D72.829 Elevated white blood cell count, unspecified; R80.9 Proteinuria, unspecified; R53.83 Other fatigue

== ENCOUNTER 2017-09-17 17:02 | Inpatient (IN) | payer OTHER, MEDICARE ==
[~2017-09-17] VITALS: Ht 170.2 cm; Wt 69.4 kg
[~2017-09-17 17:02] MED LIST changes: -LISI-730 PO; +LSN5 PO; -METH1LOZ PO; -MISC1CAP60 PO; -VITA1TAB4 PO; -[UNRECOGNIZED DRUG - OTHER] PO; -[UNRECOGNIZED DRUG - OTHER] PO
[2017-09-17] MEDS ORDERED: MoRPHine SULFATE 4 MG/ML 1 ML CARP\\VIAL IV STA (17:38)
[2017-09-17] MEDS ORDERED: MISC1CAP60 PO (17:41)
[2017-09-17] MEDS ORDERED: [UNRECOGNIZED DRUG - OTHER] PO (17:46)
[2017-09-17] MEDS ORDERED: [UNRECOGNIZED DRUG - OTHER] PO (17:46)
[2017-09-17] MEDS ORDERED: VITA1TAB4 PO (17:50)
[2017-09-17] MEDS ORDERED: METH1LOZ PO (17:50)
[2017-09-17 18:25] LABS: BASO % 0.3 %; BASO ABS # 0.04 K/uL (0-0.2); EOS % 0.7 %; EOS ABS # 0.11 K/uL (0-0.5); HEMATOCRIT 38.6 % (42-52); HEMOGLOBIN 13.5 g/dL (14.0-18.0); IG# 0.09 K/uL (0.00-0.02); LYMPH % 4.2 %; LYMPH ABS # 0.64 K/uL (1.2-3.4); MEAN CELL VOLUME 89.1 fL (80-100); MEAN CORPUSCULAR HEMOGLOBIN 31.2 pg (25-34); MEAN PLATELET VOLUME 11.3 fL (7.4-10.4); MONO % 5.4 %; MONO ABS # 0.83 K/uL (0.11-0.59); NEUT % 88.8 %; NEUT ABS # 13.61 K/uL (1.4-6.5); PLATELET COUNT 189 K/uL (130-400); RED CELL DISTRIBUTION WIDTH SD 48.9 fL (36.4-46.3); WHITE BLOOD COUNT 15.32 K/uL (4.8-10.8)
[2017-09-17 18:42] LABS: ALBUMIN 2.7 gm/dl (3.4-5.0); CALCIUM 9.1 mg/dl (8.5-10.1); CREATININE 1.03 mg/dl (0.60-1.40); INR 1.2 (0.9-1.1); POTASSIUM 4.4 mmol/L (3.5-5.1); PTT PATIENT 33.5 SECONDS (21.0-31.0)
[2017-09-17 18:45] LABS: TOTAL PROTEIN 6.8 gm/dl (6.4-8.2)
--- NOTE | 2017-09-17 19:12 | EMERGENCY ROOM VISIT NOTE ---
History Report prepared by Yashira: Yeison Ro Under the Supervision of: Dr. Devonte Frias M.D. First contact with patient: 17:23 Chief Complaint: CATHETER REPLACEMENT Stated Complaint: CATHETER PROBLEMS, POSSIBLE HYDRATION, VERY TENDER History of Present Illness The patient is a 67 year old white male with a past medical history of diabetes , appendectomy, cancer who presents to the ED with a cc of constant lower abdominal pain beginning last night. He currently rates his discomfort a 10/10 in severity. Pt is on hospice for cancer. He had a catheter placed yesterday, and he was able to pass urine initially. Pt has not passed urine since, and it is believed he has crystals or stones stuck in it. The patient's caregiver reports he had a larger catheter placed earlier today, but he did not pass urine. Pt is on tonic for detox. Positive blood in urine, dark urine. Pt takes herbal remedies that contain dandelion as a blood thinner. Source of History: patient Onset: last night Position: abdomen (lower) Symptom Intensity: 10/10 Timing: constant Note: Associated symptoms: inability to urinate, blood in urine, dark urine Review of Systems See HPI for pertinent positives and negatives. A total of ten systems were reviewed and were otherwise negative. Past Medical & Surgical Medical Problems: (1) Cancer (2) Diabetes (3) Encephalopathy (4) Hospice care patient (5) s/p orif scapula Surgical Problems: (1) S/P appendectomy Family History Diabetes mellitus FH: cancer FH: heart disease Hypertension Seizures Social History Smoking Status: Former Smoker Alcohol Use: none Marital Status: Housing Status: lives with significant other Occupation Status: retired Current/Historical Medications Scheduled Clonazepam (Clonazepam), 1 TAB PO HS Escitalopram Oxalate (Escitalopram Oxalate), 1 TAB PO DAILY Lisinopril (Lisinopril), 1 TAB PO DAILY Methylcobalamin (Methyl B-12), 1,000 MCG PO DAILY Misc Natural Products (Saw Grethel), 1 CAP PO BID Tamsulosin HCl (Tamsulosin HCl), 1 CAP PO DAILY Vitamin E (Vitamin E), 400 UNITS PO DAILY [Healthy Joint], 500 MG PO BID [Hoxsey Soln], 0.25 TSP PO QID Allergies Coded Allergies: Acetaminophen (Unverified Allergy, Unknown, SWELLING TO GROIN AREA, 09/17/17 ) PER PTS , SHE INDICATED THAT IT IS THE OXYCODONE IN THE COMBO, NOT THE ACETAMINOPHEN Oxycodone (Unverified Allergy, Unknown, SWELLING TO GROIN AREA, 09/17/17) PER PTS , SHE INDICATED THAT IT IS THE OXYCODONE IN THE COMBO, NOT THE ACETAMINOPHEN Physical Exam Vital Signs Date Time Temp Pulse Resp B/P (MAP) Pulse Ox O2 Delivery O2 Flow Rate FiO2 09/17/17 21:28 80 18 179/94 94 Nasal Cannula 2.0 09/17/17 19:42 84 20 157/92 93 Room Air 09/17/17 18:34 88 22 184/83 90 Room Air 09/17/17 18:24 84 09/17/17 17:14 36.6 99 20 146/84 95 Room Air Physical Exam GENERAL: Awake, alert, well-appearing, NAD HENT: Normocephalic, atraumatic. EYES: Normal conjunctiva. Sclera non-icteric. NECK: Supple. No nuchal rigidity. FROM. RESPIRATORY: CTAB, no rhonchi, wheezing, crackles CARDIAC: RRR, no MRG ABDOMEN: Mild diffuse TTP but soft, nonsurgical, BS+, Feeding tube in place. : Gillis in place with blood tinged urine in bag. MSK: No chest wall TTP, no LE edema NEURO: GCS 15, CN 2-12 intact, moves all 4s on command SKIN: No rash or jaundice noted. Medical Decision & Procedures ER Provider Diagnostic Interpretation: Radiology results as stated below per my review and radiologist interpretation: PA CHEST RADIOGRAPH AND UPRIGHT AND SUPINE AP RADIOGRAPHS OF THE ABDOMEN CLINICAL HISTORY: Abdominal pain. COMPARISON STUDY: Chest radiograph July 12, [address] of the abdomen and pelvis performed earlier today. FINDINGS: Postoperative findings within the left shoulder are incidentally noted. No pneumothorax or pleural effusion is present. There is mild reticulonodular interstitial thickening within the lungs. No lobar consolidation is present. Cardiac size is normal. Bowel gas pattern is normal. There is no free air. A moderate amount of stool within the colon is noted. IMPRESSION: 1. No free air or evidence of bowel obstruction. 2. Moderate amount of stool within the colon. 3. Mild reticulonodular interstitial thickening within the lungs. Electronically signed by: Donovan Reyes M.D. 09/17/2017 7:53 PM Dictated Date/Time: 09/17/2017 7:[address] OF THE ABDOMEN AND PELVIS WITHOUT CONTRAST, STONE PROTOCOL CLINICAL HISTORY: Abdominal pain and decreased urine output. Esophageal cancer. COMPARISON STUDY: CT of the abdomen and pelvis July 12, 2017 and PET/CT July 24, 2017. TECHNIQUE: Helical axial images of the abdomen and pelvis were obtained without IV or oral contrast according to renal stone protocol. A dose lowering technique was utilized adhering to the principles of ALARA. FINDINGS: Visualized portions of the lower chest demonstrate a trace pericardial effusion. Multiple ill-defined nodular opacities within visualized portions the lower lungs are suboptimally assessed due to respiratory motion. Evaluation of the abdomen and pelvis is suboptimal on this unenhanced examination. No pneumatosis, free air or portal venous gas is present. The size and number of innumerable hepatic lesions has increased since CT of July 12, 2017 and PET/CT of July 24, 2017. Index right hepatic dome lesion measures 2.5 cm on current exam. It previously measured 1.7 cm. Gastrohepatic ligament lymph node is unchanged, measuring 2.2 x 1.6 cm. Periaortic lymphadenopathy is unchanged. There is no evidence for a bowel obstruction. TM is mildly compromised by motion artifact. A few splenic hypodensities which measure up to 3.6 cm are new since previous exams. There is no hydronephrosis. A Gillis catheter is present within the bladder which is collapsed. There is mild symmetric bilateral perinephric infiltration. No suspicious osseous lesions are present. There is no pelvic lymphadenopathy. IMPRESSION: 1. Moderate increase in size and number of numerous hepatic lesions consistent with progression of metastatic disease since prior exam of July 24, 2017. 2. No significant change in abdominal lymphadenopathy. 3. Interval development of several splenic hypodensities. These are nonspecific although may reflect splenic infarcts. Metastatic disease is considered less likely. 4. No hydronephrosis. Mild symmetric bilateral perinephric infiltration, a nonspecific finding. Gillis catheter within the bladder which is collapsed. Electronically signed by: Donovan Reyes M.D. 09/17/2017 7:24 PM Dictated Date/Time: 09/17/2017 7:07 PM Laboratory Results 09/17/17 18:02 Red Blood Count 4.33, Mean Corpuscular Volume 89.1, Mean Corpuscular Hemoglobin 31.2, Mean Corpuscular Hemoglobin Concent 35.0, Mean Platelet Volume 11.3, Neutrophils (%) (Auto) 88.8, Lymphocytes (%) (Auto) 4.2, Monocytes (%) (Auto) 5.4, Eosinophils (%) (Auto) 0.7, Basophils (%) (Auto) 0.3, Neutrophils # (Auto) 13.61, Lymphocytes # (Auto) 0.64, Monocytes # (Auto) 0.83, Eosinophils # (Auto) 0.11, Basophils # (Auto) 0.04 09/17/17 18:02 Test 09/17/17 18:02 09/17/17 19:25 White Blood Count 15.32 K/uL (4.8-10.8) Red Blood Count 4.33 M/uL (4.7-6.1) Hemoglobin 13.5 g/dL (14.0-18.0) Hematocrit 38.6 % (42-52) Mean Corpuscular Volume 89.1 fL (80-100) Mean Corpuscular Hemoglobin 31.2 pg (25-34) Mean Corpuscular Hemoglobin Concent 35.0 g/dl (32-36) Platelet Count 189 K/uL (130-400) Mean Platelet Volume 11.3 fL (7.4-10.4) Neutrophils (%) (Auto) 88.8 % Lymphocytes (%) (Auto) 4.2 % Monocytes (%) (Auto) 5.4 % Eosinophils (%) (Auto) 0.7 % Basophils (%) (Auto) 0.3 % Neutrophils # (Auto) 13.61 K/uL (1.4-6.5) Lymphocytes # (Auto) 0.64 K/uL (1.2-3.4) Monocytes # (Auto) 0.83 K/uL (0.11-0.59) Eosinophils # (Auto) 0.11 K/uL (0-0.5) Basophils # (Auto) 0.04 K/uL (0-0.2) RDW Standard Deviation 48.9 fL (36.4-46.3) RDW Coefficient of Variation 15.0 % (11.5-14.5) Immature Granulocyte % (Auto) 0.6 % Immature Granulocyte # (Auto) 0.09 K/uL (0.00-0.02) Prothrombin Time 13.0 SECONDS (9.0-12.0) Prothromb Time International Ratio 1.2 (0.9-1.1) Activated Partial Thromboplast Time 33.5 SECONDS (21.0-31.0) Partial Thromboplastin Ratio 1.3 Anion Gap 5.0 mmol/L (3-11) Est Creatinine Clear Calc Drug Dose 63.3 ml/min Estimated GFR () 85.5 Estimated GFR (Non- 73.8 BUN/Creatinine Ratio 23.1 (10-20) Calcium Level 9.1 mg/dl (8.5-10.1) Total Bilirubin 0.8 mg/dl (0.2-1) Direct Bilirubin 0.2 mg/dl (0-0.2) Aspartate Amino Transf (AST/SGOT) 22 U/L (15-37) Alanine Aminotransferase (ALT/SGPT) 33 U/L (12-78) Alkaline Phosphatase 317 U/L (45-117) Total Protein 6.8 gm/dl (6.4-8.2) Albumin 2.7 gm/dl (3.4-5.0) Lipase 75 U/L (73-393) Urine Color DK YELLOW Urine Appearance CLOUDY (CLEAR) Urine pH 6.5 (4.5-7.5) Urine Specific [place] 1.025 (1.000-1.030) Urine Protein 2+ (NEG) Urine Glucose (UA) NEG (NEG) Urine Ketones NEG (NEG) Urine Occult Blood 3+ (NEG) Urine Nitrite NEG (NEG) Urine Bilirubin NEG (NEG) Urine Urobilinogen NEG (NEG) Urine Leukocyte Esterase MODERATE (NEG) Urine WBC (Auto) >30 /hpf (0-5) Urine RBC (Auto) >30 /hpf (0-4) Urine Hyaline Casts (Auto) 10-30 /lpf (0-5) Urine Epithelial Cells (Auto) 20-30 /lpf (0-5) Urine Bacteria (Auto) NEG (NEG) Urine Pathogenic Casts 0-3 GRANULAR CASTS /lpf (0) Laboratory results reviewed by me Medications Administered Medications (Trade) Dose Ordered Sig/Agnieszka Route Start Time Stop Time Status Last Admin Dose Admin Morphine Sulfate (MoRPHine SULFATE INJ) 4 mg NOW STAT IV 09/17/17 17:38 09/17/17 17:39 DC 09/17/17 19:06 4 MG Sodium Chloride 500 ml @ 999 mls/hr Q31M STAT IV 09/17/17 19:14 09/17/17 19:44 DC 09/17/17 19:31 999 MLS/HR ED Course 1728: The patient was evaluated in room C09. A complete history and physical exam was performed. 1658: I reevaluated the patient and discussed current exam findings. 1923: The nursing staff informed me the patient's bladder scan showed 26 cc of fluid. 2010: Upon reexamination, the patient was resting comfortably. I discussed the test results and treatment plan with him and his family. They verbalized agreement with the treatment plan. The patient will be evaluated for further management. 2017: I discussed the patient's case with Dr. Proctor, [facility] Hospitalist. The patient will be evaluated for further management and care. Medical Decision The patient is a 67 year old white male with a past medical history of diabetes , appendectomy, cancer who presents to the ED with a cc of constant lower abdominal pain beginning last night. Differential diagnosis: Etiologies such as renal colic, appendicitis, diverticulitis, mesenteric ischemia, aortic pathology, infections, inflammatory bowel disease, PUD, biliary pathology, UTI, as well as others were entertained. Patient was seen and evaluated at the bedside. Patient was complaining of some difficulty with urination and some decreased urine output. Patient did recently have a Gillis catheter that was changed this morning by home health. They were concerned there were crystals in the urine. Patient did have blood work that was completed along with plain films CT abdomen pelvis as well as urinalysis. Patient's urinalysis is have some scant blood and does have question of signs of infection however the patient does not have any urine bacteria or nitrates so we'll not treat this time. Patient is non-con did show progression of his metastatic disease. Patient was noted to have question will splenic infarcts. Because of this I did recommend that he stay in the hospital for further evaluation and treatment. Patient's white blood cell count was elevated at 15,000 which has been chronic in the past. Patient does have chronic stable anemia. Patient has no other concerning blood work. Patient's kidney function is fairly normal. Patient was given pain control as well as fluids patient was feeling improved. Patient's CT did show worsening progression of his metastatic disease. Patient does have some questionable splenic infarct although they could be metastatic disease. Given that the patient is hospice this was further discussed this with the hospitalist as well as with the adult protective caseworker did further discuss this with the patient. Medication Reconcilliation Current Medication List: was personally reviewed by me Blood Pressure Screening Patient's blood pressure: Elevated blood pressure Monitored by hospitalist. Consults Time Called: 1950 Consulting Physician: Dr. Proctor, [facility] Hospitalist Returned Call: 2017 I discussed the patient's case with Dr. Proctor [facility] Hospitalist. The patient will be evaluated for further management and care. Impression Primary Impression: Splenic infarct Additional Impressions: Abdominal pain Esophageal cancer Dehydration Scribe Attestation The scribe's documentation has been prepared under my direction and personally reviewed by me in its entirety. I confirm that the note above accurately reflects all work, treatment, procedures, and medical decision making performed by me. Departure Information Dispostion Being Evaluated By Hospitalist Referrals No Doctor, Assigned (PCP) Patient Instructions My [facility] Problem Qualifiers Additional Impressions: Abdominal pain Abdominal location: unspecified location Qualified Codes: R10.9 - Unspecified abdominal pain Esophageal cancer Malignant neoplasm of esophagus location: lower third Qualified Codes: C15.5 - Malignant neoplasm of lower third of esophagus
[2017-09-17] MEDS ORDERED: SODIUM CHLORIDE 0.9% 500ML 500 ML IV STA (19:14)
--- NOTE | 2017-09-17 19:25 | DIAGNOSTIC IMAGING REPORT ---
CT OF THE ABDOMEN AND PELVIS WITHOUT CONTRAST, STONE PROTOCOL CLINICAL HISTORY: Abdominal pain and decreased urine output. Esophageal cancer. COMPARISON STUDY: CT of the abdomen and pelvis July 12, 2017 and PET/CT July 24, 2017. TECHNIQUE: Helical axial images of the abdomen and pelvis were obtained without IV or oral contrast according to renal stone protocol. A dose lowering technique was utilized adhering to the principles of ALARA. FINDINGS: Visualized portions of the lower chest demonstrate a trace pericardial effusion. Multiple ill-defined nodular opacities within visualized portions the lower lungs are suboptimally assessed due to respiratory motion. Evaluation of the abdomen and pelvis is suboptimal on this unenhanced examination. No pneumatosis, free air or portal venous gas is present. The size and number of innumerable hepatic lesions has increased since CT of July 12, 2017 and PET/CT of July 24, 2017. Index right hepatic dome lesion measures 2.5 cm on current exam. It previously measured 1.7 cm. Gastrohepatic ligament lymph node is unchanged, measuring 2.2 x 1.6 cm. Periaortic lymphadenopathy is unchanged. There is no evidence for a bowel obstruction. TM is mildly compromised by motion artifact. A few splenic hypodensities which measure up to 3.6 cm are new since previous exams. There is no hydronephrosis. A Gillis catheter is present within the bladder which is collapsed. There is mild symmetric bilateral perinephric infiltration. No suspicious osseous lesions are present. There is no pelvic lymphadenopathy. IMPRESSION: 1. Moderate increase in size and number of numerous hepatic lesions consistent with progression of metastatic disease since prior exam of July 24, 2017. 2. No significant change in abdominal lymphadenopathy. 3. Interval development of several splenic hypodensities. These are nonspecific although may reflect splenic infarcts. Metastatic disease is considered less likely. 4. No hydronephrosis. Mild symmetric bilateral perinephric infiltration, a nonspecific finding. Gillis catheter within the bladder which is collapsed. Electronically signed by: Donovan Reyes M.D. 09/17/2017 7:24 PM Dictated Date/Time: 09/17/2017 7:07 PM
--- NOTE | 2017-09-17 19:54 | DIAGNOSTIC IMAGING REPORT ---
PA CHEST RADIOGRAPH AND UPRIGHT AND SUPINE AP RADIOGRAPHS OF THE ABDOMEN CLINICAL HISTORY: Abdominal pain. COMPARISON STUDY: Chest radiograph July 12, [address] of the abdomen and pelvis performed earlier today. FINDINGS: Postoperative findings within the left shoulder are incidentally noted. No pneumothorax or pleural effusion is present. There is mild reticulonodular interstitial thickening within the lungs. No lobar consolidation is present. Cardiac size is normal. Bowel gas pattern is normal. There is no free air. A moderate amount of stool within the colon is noted. IMPRESSION: 1. No free air or evidence of bowel obstruction. 2. Moderate amount of stool within the colon. 3. Mild reticulonodular interstitial thickening within the lungs. Electronically signed by: Donovan Reyes M.D. 09/17/2017 7:53 PM Dictated Date/Time: 09/17/2017 7:51 PM
--- NOTE | 2017-09-17 20:24 | History and Physical ---
History & Physical Date & Time of Service: Sep 17, 2017 at 20:22 Chief Complaint: Catheter Problems, Possible Hydration, Very Tender Primary Care Physician: Edgar Tsang M.D. History of Present Illness Source: family Unfortunate 67 y/o M Hx DM, HPL, metastatic esophageal CA. The pt transitioned to hospice care 2 days prior. 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 He has an indweling Gillis and was exhibiting severe suprapubic pain. The catheter was changed as it was thought he may be obstructed. This did not yield any urine output and he was sent to the ER therefore. It was confirmed that his catheter is functional in the ER. After discussion with the pt's however, the pt has nereida increasingly difficult to care for and she feels she is unable to properly manage his symptoms at home. Family are then requesting transition to inpatient hospice. The pt, following narcotic administration, is somnolent and unable to contribute to the HPI/ROS. No fevers or rigors are reported. 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 - does not smoke or drink - transitioned to hospice care 09/16 Smoking Status: Former Smoker Marital Status: Occupational Status: retired Allergies Coded Allergies: Acetaminophen (Unverified Allergy, Unknown, SWELLING TO GROIN AREA, 09/17/17 ) PER PTS , SHE INDICATED THAT IT IS THE OXYCODONE IN THE COMBO, NOT THE ACETAMINOPHEN Oxycodone (Unverified Allergy, Unknown, SWELLING TO GROIN AREA, 09/17/17) PER PTS , SHE INDICATED THAT IT IS THE OXYCODONE IN THE COMBO, NOT THE ACETAMINOPHEN Home Medications Scheduled Clonazepam (Clonazepam), 1 TAB PO HS Escitalopram Oxalate (Escitalopram Oxalate), 1 TAB PO DAILY Lisinopril (Lisinopril), 1 TAB PO DAILY Methylcobalamin (Methyl B-12), 1,000 MCG PO DAILY Misc Natural Products (Saw [place]), 1 CAP PO BID Tamsulosin HCl (Tamsulosin HCl), 1 CAP PO DAILY Vitamin E (Vitamin E), 400 UNITS PO DAILY [Healthy Joint], 500 MG PO BID [Hoxsey Soln], 0.25 TSP PO QID Physical Exam Vital Signs Date Time Temp Pulse Resp B/P (MAP) Pulse Ox O2 Delivery O2 Flow Rate FiO2 09/17/17 19:42 84 20 157/92 93 Room Air 09/17/17 18:34 88 22 184/83 90 Room Air 09/17/17 18:24 84 09/17/17 17:14 36.6 99 20 146/84 95 Room Air General Appearance: + pertinent finding (Somnolent, middle-aged male - appears uncomfortable) Head: normocephalic Eyes: normal inspection ENT: normal ENT inspection, pharynx normal Neck: supple, no JVD Respiratory/Chest: chest non-tender, lungs clear, normal breath sounds Cardiovascular: regular rate, rhythm, no edema, no gallop Abdomen/GI: normal bowel sounds, + pertinent finding (There is lower abdominal/ suprapubic tenderness to palpation) Back: normal inspection Extremities/Musculoskelatal: normal inspection, no calf tenderness, normal capillary refill Neurologic/Psych: + pertinent finding (Somnolent - could not comply with exam - no noted ) Skin: warm/dry, no rash, + pallor Diagnostics Laboratory Results Results Past 24 Hours Test 09/17/17 18:02 09/17/17 19:25 Range/Units White Blood Count 15.32 4.8-10.8 K/uL Red Blood Count 4.33 4.7-6.1 M/uL Hemoglobin 13.5 14.0-18.0 g/dL Hematocrit 38.6 42-52 % Mean Corpuscular Volume 89.1 80-100 fL Mean Corpuscular Hemoglobin 31.2 25-34 pg Mean Corpuscular Hemoglobin Concent 35.0 32-36 g/dl Platelet Count 189 130-400 K/uL Mean Platelet Volume 11.3 7.4-10.4 fL Neutrophils (%) (Auto) 88.8 % Lymphocytes (%) (Auto) 4.2 % Monocytes (%) (Auto) 5.4 % Eosinophils (%) (Auto) 0.7 % Basophils (%) (Auto) 0.3 % Neutrophils # (Auto) 13.61 1.4-6.5 K/uL Lymphocytes # (Auto) 0.64 1.2-3.4 K/uL Monocytes # (Auto) 0.83 0.11-0.59 K/uL Eosinophils # (Auto) 0.11 0-0.5 K/uL Basophils # (Auto) 0.04 0-0.2 K/uL RDW Standard Deviation 48.9 36.4-46.3 fL RDW Coefficient of Variation 15.0 11.5-14.5 % Immature Granulocyte % (Auto) 0.6 % Immature Granulocyte # (Auto) 0.09 0.00-0.02 K/uL Prothrombin Time 13.0 9.0-12.0 SECONDS Prothromb Time International Ratio 1.2 0.9-1.1 Activated Partial Thromboplast Time 33.5 21.0-31.0 SECONDS Partial Thromboplastin Ratio 1.3 Sodium Level 133 136-145 mmol/L Potassium Level 4.4 3.5-5.1 mmol/L Chloride Level 100 98-107 mmol/L Carbon Dioxide Level 28 21-32 mmol/L Anion Gap 5.0 3-11 mmol/L Blood Urea Nitrogen 24 7-18 mg/dl Creatinine 1.03 0.60-1.40 mg/dl Est Creatinine Clear Calc Drug Dose 63.3 ml/min Estimated GFR () 85.5 Estimated GFR (Non- 73.8 BUN/Creatinine Ratio 23.1 10-20 Random Glucose 124 70-99 mg/dl Calcium Level 9.1 8.5-10.1 mg/dl Total Bilirubin 0.8 0.2-1 mg/dl Direct Bilirubin 0.2 0-0.2 mg/dl Aspartate Amino Transf (AST/SGOT) 22 15-37 U/L Alanine Aminotransferase (ALT/SGPT) 33 12-78 U/L Alkaline Phosphatase 317 45-117 U/L Total Protein 6.8 6.4-8.2 gm/dl Albumin 2.7 3.4-5.0 gm/dl Lipase 75 73-393 U/L Urine Color DK YELLOW Urine Appearance CLOUDY CLEAR Urine pH 6.5 4.5-7.5 Urine Specific [place] 1.025 1.000-1.030 Urine Protein 2+ NEG Urine Glucose (UA) NEG NEG Urine Ketones NEG NEG Urine Occult Blood 3+ NEG Urine Nitrite NEG NEG Urine Bilirubin NEG NEG Urine Urobilinogen NEG NEG Urine Leukocyte Esterase MODERATE NEG Urine WBC (Auto) >30 0-5 /hpf Urine RBC (Auto) >30 0-4 /hpf Urine Hyaline Casts (Auto) 10-30 0-5 /lpf Urine Epithelial Cells (Auto) 20-30 0-5 /lpf Urine Bacteria (Auto) NEG NEG Urine Pathogenic Casts 0-3 GRANULAR CASTS 0 /lpf Diagnostic Radiology CT abdomen: 1. Moderate increase in size and number of numerous hepatic lesions consistent with progression of metastatic disease since prior exam of July 24, 2017. 2. No significant change in abdominal lymphadenopathy. 3. Interval development of several splenic hypodensities. These are nonspecific although may reflect splenic infarcts. Metastatic disease is considered less likely. 4. No hydronephrosis. Mild symmetric bilateral perinephric infiltration, a nonspecific finding. Gillis catheter within the bladder which is collapsed. Impression Assessment and Plan Unfortunate 67 y/o M Hx DM, HPL, metastatic esophageal CA. The pt transitioned to hospice care 2 days prior. 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 He has an indweling Gillis and was exhibiting severe suprapubic pain. The catheter was changed as it was thought he may be obstructed. This did not yield any urine output and he was sent to the ER therefore. It was confirmed that his catheter is functional in the ER. After discussion with the pt's however, the pt has nereida increasingly difficult to care for and she feels she is unable to properly manage his symptoms at home. Family are then requesting transition to inpatient hospice. 1) Hospice care - Per family request, we will inquire regarding inpatient hospice AM. We will place him on a narcotic and bowel regimen and Pyridium for bladder discomfort. 2) UA is equivocal - pt with Gillis - we will treat for a UTI in the interest of comfort as he is exhibiting severe bladder pain. Antibiotics can DCd if cultures are negative. 3) HPL, DM - will not be treated considering pt's status DNR - no anticoagulation due to hospice status Total time for this admit including review of labs, meds, imaging - discussion wit pt, family and ER attending - 35 min Level of Care Med/Surg Resuscitation Status DO NOT RESUSCITATE VTE Prophylaxis Given or contraindicated: Treatment not indicated
[2017-09-17] MEDS ORDERED: DEXTROSE 50% 50 ML SYR IV PRN (21:45)
[2017-09-17] MEDS ORDERED: GLUCOSE 40% GEL 15 GM TUBE PO PRN (21:45)
[2017-09-17] MEDS ORDERED: GLUCOSE 10 TABS/TUBE PO PRN (21:45)
[2017-09-17] MEDS ORDERED: GLUCAGON FOR INJ 1 MG VIAL SQ PRN (21:45)
[2017-09-17] MEDS ORDERED: OLANZAPINE ZYDIS 5 MG ORALLY DIS. TAB PO PRN (21:45)
[2017-09-17] MEDS ORDERED: POLYETHYLENE (MIRALAX) 17 GM PACK PO PRN (21:45)
[2017-09-17] MEDS ORDERED: LORAZEPAM 2 MG/ML 1 ML VIAL IV PRN (21:45)
[2017-09-17] MEDS ORDERED: MAGNESIUM HYDROXIDE SUSP 30 ML UDC PO PRN (21:45)
[2017-09-17] MEDS ORDERED: ACETAMINOPHEN 325 MG TAB PO PRN (21:45)
[2017-09-17] MEDS ORDERED: ALUMINUM/MAGNESIUM/SIMETH (MAALOX MAX) 30 ML UDC PO PRN (21:45)
[2017-09-17] MEDS ORDERED: HYDROmorphone INJ 1 MG/ML SYR IV PRN (21:45)
[2017-09-17] MEDS ORDERED: PHENAZOPYRIDINE HCL 100 MG TAB PO PRN (22:15)
[2017-09-17 22:20] VITALS: BP 176/82; PULSE 78; TEMP 36.6; O2SAT 94; BMI 25.9
[2017-09-17] MEDS: SODIUM CHLORIDE 0.9% 1000ML 1,000 ML IV SCH (22:33)
[2017-09-17] MEDS ORDERED: IV FLUIDS COMPLETED PRN (22:45)
[2017-09-17] MEDS ORDERED: LORAZEPAM INJ 0.5 MG in SYRINGE 0.75 ML IV PRN (23:00)
[2017-09-17] MEDS: CIPROFLOXACIN / D5W 400 MG in PREMIXED IN D5W 200 ML IV SCH (23:48)
[2017-09-18 07:33] VITALS: BP 171/71; PULSE 88; TEMP 36.8; O2SAT 93
[2017-09-18] MEDS ORDERED: DOCUSATE SODIUM 100 MG CAP PO SCH (08:00)
[2017-09-18] MEDS ORDERED: TAMSULOSIN HCL 0.4 MG CAP PO SCH (08:00)
[2017-09-18] MEDS: ESCITALOPRAM OXALATE 20 MG TAB PO SCH (08:27)
[2017-09-18] MEDS: SODIUM CHLORIDE 0.9% 1000ML 1,000 ML IV SCH (08:32)
[2017-09-18 08:33] VITALS: O2SAT 92
[2017-09-18] MEDS: ONDANSETRON INJ 2 MG/ML 2 ML VIAL IV PRN (08:42)
[2017-09-18 11:52] VITALS: BP 149/76; PULSE 94; TEMP 36.5; O2SAT 90
[2017-09-18] MEDS ORDERED: PROMETHAZINE HCL INJ 12.5 MG in SODIUM CHLORIDE 0.9% 50ML 50 ML IV PRN (12:30)
[2017-09-18] MEDS ORDERED: LORAZEPAM 2 MG/ML 1 ML VIAL IV PRN (12:30)
[2017-09-18] MEDS ORDERED: HYOSCYAMINE SULFATE 0.125 MG SL TAB PO PRN (12:30)
[2017-09-18] MEDS: CIPROFLOXACIN / D5W 400 MG in PREMIXED IN D5W 200 ML IV SCH ×2 (12:36→23:42)
[2017-09-18] MEDS ORDERED: LORAZEPAM INJ 0.5 MG in SYRINGE 0.75 ML IV PRN (13:00)
[2017-09-18] MEDS ORDERED: OPTIRAY 320 IV PRN (15:30)
--- NOTE | 2017-09-18 16:11 | Progress Note ---
Subjective Date of Service: Sep 18, 2017. Subjective this pt is lethargic and restless, he is choosing how to respond to questions, feels this is a great departure from his baseline Problem List Medical Problems: (1) Abdominal pain Status: Acute (2) Abdominal pain Status: Acute (3) Constipation Status: Acute (4) Dehydration Status: Acute (5) Esophageal cancer Status: Acute (6) Metastatic cancer Status: Acute (7) Splenic infarct Status: Acute Review of Systems Constitutional: + problem reported (pt is restless and not interactive except fro crass statements) Respiratory: No cough, No shortness of breath Cardiac: No chest pain, No edema Objective Vital Signs Date Time Temp Pulse Resp B/P (MAP) Pulse Ox O2 Delivery O2 Flow Rate FiO2 09/18/17 11:52 36.5 94 19 149/76 (100) 90 Nasal Cannula 2.0 09/18/17 08:45 Room Air 09/18/17 08:33 92 Room Air 09/18/17 07:33 36.8 88 17 171/71 (104) 93 09/18/17 00:20 Nasal Cannula 2.0 09/17/17 22:20 36.6 78 20 176/82 94 Nasal Cannula 2.0 09/17/17 21:28 80 18 179/94 94 Nasal Cannula 2.0 09/17/17 19:42 84 20 157/92 93 Room Air 09/17/17 18:34 88 22 184/83 90 Room Air 09/17/17 18:24 84 09/17/17 17:14 36.6 99 20 146/84 95 Room Air Physical Exam General Appearance: WD/WN, + moderate distress Neck: supple, no JVD Respiratory/Chest: chest non-tender, lungs clear, normal breath sounds Cardiovascular: regular rate, rhythm, no murmur Abdomen: normal bowel sounds, non tender, soft Extremities: no pedal edema, no calf tenderness Neurologic/Psychiatric: alert, + depressed affect, + disoriented Laboratory Results Last 24 Hours Test 09/17/17 18:02 09/17/17 19:25 09/18/17 07:46 09/18/17 11:38 White Blood Count 15.32 K/uL Red Blood Count 4.33 M/uL Hemoglobin 13.5 g/dL Hematocrit 38.6 % Mean Corpuscular Volume 89.1 fL Mean Corpuscular Hemoglobin 31.2 pg Mean Corpuscular Hemoglobin Concent 35.0 g/dl Platelet Count 189 K/uL Mean Platelet Volume 11.3 fL Neutrophils (%) (Auto) 88.8 % Lymphocytes (%) (Auto) 4.2 % Monocytes (%) (Auto) 5.4 % Eosinophils (%) (Auto) 0.7 % Basophils (%) (Auto) 0.3 % Neutrophils # (Auto) 13.61 K/uL Lymphocytes # (Auto) 0.64 K/uL Monocytes # (Auto) 0.83 K/uL Eosinophils # (Auto) 0.11 K/uL Basophils # (Auto) 0.04 K/uL RDW Standard Deviation 48.9 fL RDW Coefficient of Variation 15.0 % Immature Granulocyte % (Auto) 0.6 % Immature Granulocyte # (Auto) 0.09 K/uL Prothrombin Time 13.0 SECONDS Prothromb Time International Ratio 1.2 Activated Partial Thromboplast Time 33.5 SECONDS Partial Thromboplastin Ratio 1.3 Sodium Level 133 mmol/L Potassium Level 4.4 mmol/L Chloride Level 100 mmol/L Carbon Dioxide Level 28 mmol/L Anion Gap 5.0 mmol/L Blood Urea Nitrogen 24 mg/dl Creatinine 1.03 mg/dl Est Creatinine Clear Calc Drug Dose 63.3 ml/min Estimated GFR () 85.5 Estimated GFR (Non- 73.8 BUN/Creatinine Ratio 23.1 Random Glucose 124 mg/dl Calcium Level 9.1 mg/dl Total Bilirubin 0.8 mg/dl Direct Bilirubin 0.2 mg/dl Aspartate Amino Transf (AST/SGOT) 22 U/L Alanine Aminotransferase (ALT/SGPT) 33 U/L Alkaline Phosphatase 317 U/L Total Protein 6.8 gm/dl Albumin 2.7 gm/dl Lipase 75 U/L Urine Color DK YELLOW Urine Appearance CLOUDY Urine pH 6.5 Urine Specific [place] 1.025 Urine Protein 2+ Urine Glucose (UA) NEG Urine Ketones NEG Urine Occult Blood 3+ Urine Nitrite NEG Urine Bilirubin NEG Urine Urobilinogen NEG Urine Leukocyte Esterase MODERATE Urine WBC (Auto) >30 /hpf Urine RBC (Auto) >30 /hpf Urine Hyaline Casts (Auto) 10-30 /lpf Urine Epithelial Cells (Auto) 20-30 /lpf Urine Bacteria (Auto) NEG Urine Pathogenic Casts 0-3 GRANULAR CASTS /lpf Bedside Glucose 94 mg/dl 119 mg/dl Assessment and Plan Unfortunate 67 y/o M Hx DM, HPL, metastatic esophageal CA. The pt transitioned to hospice care as an outpt but due to increased confusion, he could not be cared for by his and complained of suprapubic pain, he has an indweling Gillis, the catheter was changed. Pt was seen by his hospice service and maybe transferred to inpatient hospice encephalopathy, ct head with contrast to evaluate for metastatic disease unfortunately shows large posterior circulation stroke on right, will speak to family Hospice care - Per family request, we will inquire regarding inpatient hospice AM. We will place him on a narcotic and bowel regimen and Pyridium for bladder discomfort. UA is abnormal, outpt urine culture is negative from 09/15, will reculture with pain continue with Gillis HPL, DM - will not be treated considering pt's hospice status
--- NOTE | 2017-09-18 16:15 | Palliative Care Consultation ---
Consultation Date of Consultation: Sep 18, 2017. Requesting Physician: Dr. Robledo Attending Physician: Dr. Robledo Reason for Consultation: Goals of care, hospice care History of Present Illness This 67 year old male patient with PMH metastatic esophageal cancer with spread to the lungs and liver, presented to the hospital yesterday with altered mental status, delirium, suprapubic pain with indwelling Gillis catheter, and decreased PO intake. Palliative care is asked to see patient in consult to establish goals of care and ensure comfort, as he was on hospice care prior to coming to hospital. Family indicated in ED that they would still like patient to be on hospice upon discharge, but would like to treat any reversible cause of this acute delirium and change in patient condition. UA was positive/abnormal, but outpatient urinary culture on 09/15/17 was negative for any growth yesterday . Patient is on IV Cipro while here in hospital and we will re-send a urine culture as patient had several catheter changes since his urinary culture was taken on 09/15. Upon speaking with patient's Carmen, patient has been doing an herbal detox from [place] and was experiencing urine crystals in Gillis bag, right eye/temporal headaches, and had an episode of brown vomitus. Carmen states these were all expected side effects of the detox so she didn't think anything of it until patient became suddenly delirious and weak on . Of note, patient had PET/CT back in July 2017 which did not show any metastatic disease to the brain. However, that was two months ago. We discussed obtaining another scan of brain which is agreeable to. Goal upon discharge remains for hospice at a SNF. Case management is following. Living will was reviewed by myself and placed on patient's chart. It states he wants no heroic measures, is okay with abx. 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 Social History Smoking Status: Unknown if Ever Smoked History of Alcohol Use: No Marital Status: Occupation Status: retired Review of Systems unable to obtain due to altered mental status Allergies Coded Allergies: Acetaminophen (Unverified Allergy, Unknown, SWELLING TO GROIN AREA, 09/17/17 ) PER PTS , SHE INDICATED THAT IT IS THE OXYCODONE IN THE COMBO, NOT THE ACETAMINOPHEN Oxycodone (Unverified Allergy, Unknown, SWELLING TO GROIN AREA, 09/17/17) PER PTS , SHE INDICATED THAT IT IS THE OXYCODONE IN THE COMBO, NOT THE ACETAMINOPHEN Medications Current Inpatient Medications Medications (Trade) Dose Ordered Sig/Agnieszka Route Start Time Stop Time Status Last Admin Dose Admin Escitalopram Oxalate (Lexapro Tab) 20 mg DAILY PO 09/18/17 08:00 10/18/17 08:59 09/18/17 08:27 20 MG Hydromorphone HCl (Dilaudid Inj) 0.5 mg Q2H PRN IV 09/17/17 21:45 10/01/17 21:44 Al Hydrox/Mg Hydrox/Simethicone (Maalox Max Susp) 15 ml Q4H PRN PO 09/17/17 21:45 10/17/17 21:44 Magnesium Hydroxide (Milk Of Magnesia Susp) 30 ml Q6H PRN PO 09/17/17 21:45 10/17/17 21:44 Ondansetron HCl (Zofran Inj) 4 mg Q6H PRN IV 09/17/17 21:45 10/17/17 21:44 09/18/17 08:42 4 MG Glucose (Glucose 40% Gel) 15-30 GRAMS 15 GRAMS... UD PRN PO 09/17/17 21:45 10/17/17 21:44 Glucose (Glucose Chew Tab) 4-8 Tablets 4 Tabl... UD PRN PO 09/17/17 21:45 10/17/17 21:44 Dextrose (Dextrose 50% 50ML Syringe) 25-50ML OF 50% DW IV FOR... UD PRN IV 09/17/17 21:45 10/17/17 21:44 Glucagon (Glucagon Inj) 1 mg UD PRN SQ 09/17/17 21:45 10/17/17 21:44 Olanzapine (Zyprexa Zydis Od Tab) 1.25 mg HS PRN PO 09/17/17 21:45 10/17/17 21:44 Ciprofloxacin/ Dextrose 400 mg/ Prmx 200 ml @ 100 mls/hr Q12H IV 09/17/17 23:00 09/27/17 22:59 09/18/17 12:36 100 MLS/HR Miscellaneous (Iv Fluids Completed) 1 ea PRN PRN N/A 09/17/17 22:45 09/17/18 22:44 Lorazepam (Ativan Inj) 1 mg Q4H PRN IV 09/18/17 12:30 10/18/17 12:29 Lorazepam (Ativan Inj) 0.5 mg Q4H PRN IV 09/18/17 12:30 10/18/17 12:29 Morphine Sulfate (MoRPHine SULFATE INJ) 4 mg Q4H PRN IV 09/18/17 12:30 10/02/17 12:29 Morphine Sulfate (MoRPHine SULFATE INJ) 2 mg Q4H PRN IV 09/18/17 12:30 10/02/17 12:29 Hyoscyamine Sulfate (Levsin Tab) 0.125 mg Q6H PRN PO 09/18/17 12:30 10/18/17 12:29 Promethazine HCl 12.5 mg/Sodium Chloride 50.5 ml @ 204 mls/hr Q6H PRN IV 09/18/17 12:30 10/18/17 12:29 Lorazepam 1 mg/ Syringe 1 ml @ 1 mls/min Q4H PRN IV 09/18/17 13:00 10/18/17 12:59 Lorazepam 0.5 mg/ Syringe 1 ml @ 1 mls/min Q4H PRN IV 09/18/17 13:00 10/18/17 12:59 Ioversol (Optiray 320) 125 ml UD PRN IV 09/18/17 15:30 09/22/17 15:29 UNV Physical Exam Date Time Temp Pulse Resp B/P (MAP) Pulse Ox O2 Delivery O2 Flow Rate FiO2 09/18/17 11:52 36.5 94 19 149/76 (100) 90 Nasal Cannula 2.0 09/18/17 08:45 Room Air 09/18/17 08:33 92 Room Air 09/18/17 07:33 36.8 88 17 171/71 (104) 93 09/18/17 00:20 Nasal Cannula 2.0 09/17/17 22:20 36.6 78 20 176/82 94 Nasal Cannula 2.0 09/17/17 21:28 80 18 179/94 94 Nasal Cannula 2.0 09/17/17 19:42 84 20 157/92 93 Room Air 09/17/17 18:34 88 22 184/83 90 Room Air 09/17/17 18:24 84 09/17/17 17:14 36.6 99 20 146/84 95 Room Air General Appearance: no apparent distress, + thin ENT: hearing grossly normal Neck: supple, no JVD Respiratory: no respiratory distress, no accessory muscle use, + pertinent finding (room air) Cardiovascular: regular rate, rhythm, no edema Abdomen: soft, + pertinent finding (suprapubic pain) Neurologic/Psychiatric: + disoriented, + pertinent finding (resltess in bed) Skin: normal color Laboratory Results Last 24 Hours Test 09/17/17 18:02 09/17/17 19:25 09/18/17 07:46 09/18/17 11:38 White Blood Count 15.32 K/uL Red Blood Count 4.33 M/uL Hemoglobin 13.5 g/dL Hematocrit 38.6 % Mean Corpuscular Volume 89.1 fL Mean Corpuscular Hemoglobin 31.2 pg Mean Corpuscular Hemoglobin Concent 35.0 g/dl Platelet Count 189 K/uL Mean Platelet Volume 11.3 fL Neutrophils (%) (Auto) 88.8 % Lymphocytes (%) (Auto) 4.2 % Monocytes (%) (Auto) 5.4 % Eosinophils (%) (Auto) 0.7 % Basophils (%) (Auto) 0.3 % Neutrophils # (Auto) 13.61 K/uL Lymphocytes # (Auto) 0.64 K/uL Monocytes # (Auto) 0.83 K/uL Eosinophils # (Auto) 0.11 K/uL Basophils # (Auto) 0.04 K/uL RDW Standard Deviation 48.9 fL RDW Coefficient of Variation 15.0 % Immature Granulocyte % (Auto) 0.6 % Immature Granulocyte # (Auto) 0.09 K/uL Prothrombin Time 13.0 SECONDS Prothromb Time International Ratio 1.2 Activated Partial Thromboplast Time 33.5 SECONDS Partial Thromboplastin Ratio 1.3 Sodium Level 133 mmol/L Potassium Level 4.4 mmol/L Chloride Level 100 mmol/L Carbon Dioxide Level 28 mmol/L Anion Gap 5.0 mmol/L Blood Urea Nitrogen 24 mg/dl Creatinine 1.03 mg/dl Est Creatinine Clear Calc Drug Dose 63.3 ml/min Estimated GFR () 85.5 Estimated GFR (Non- 73.8 BUN/Creatinine Ratio 23.1 Random Glucose 124 mg/dl Calcium Level 9.1 mg/dl Total Bilirubin 0.8 mg/dl Direct Bilirubin 0.2 mg/dl Aspartate Amino Transf (AST/SGOT) 22 U/L Alanine Aminotransferase (ALT/SGPT) 33 U/L Alkaline Phosphatase 317 U/L Total Protein 6.8 gm/dl Albumin 2.7 gm/dl Lipase 75 U/L Urine Color DK YELLOW Urine Appearance CLOUDY Urine pH 6.5 Urine Specific [place] 1.025 Urine Protein 2+ Urine Glucose (UA) NEG Urine Ketones NEG Urine Occult Blood 3+ Urine Nitrite NEG Urine Bilirubin NEG Urine Urobilinogen NEG Urine Leukocyte Esterase MODERATE Urine WBC (Auto) >30 /hpf Urine RBC (Auto) >30 /hpf Urine Hyaline Casts (Auto) 10-30 /lpf Urine Epithelial Cells (Auto) 20-30 /lpf Urine Bacteria (Auto) NEG Urine Pathogenic Casts 0-3 GRANULAR CASTS /lpf Bedside Glucose 94 mg/dl 119 mg/dl Assessment & Plan Palliative Performance Scale: 40 % Problem list: Altered mental status/delirium Headaches Suprapubic pain Abnormal UA Metastatic esophageal cancer- only being treated holistically with herbal meds Decreased PO intake Goals of care (Z51.5) Palliative care recs: discussed with patient's , Dr. Robledo and transplant case manager. -Level 5 DNR. -Patient was on hospice prior to admission. cyber security manager states that [facility] is still on board and will place patient on [facility] hospice. -CT head with contrast to r/o mets. -Allow patient to eat if he is able/wants to. states he had no dysphagia or odynophagia prior to this episode and is able to tolerate. Even if he is not able to eat/drink, he would NOT want any artificial feeding/hydration. -On IV abx for abnormal UTI. Resent urine culture. -Would DC IV meds and order Roxanol 5mg PO Q3h PRN pain or SOB. Lorazepam 1mg PO /SL Q4h PRN anxiety/agitation. Has not required any of these yet. -Plan for discharge is SNF with hospice care. cyber security manager following. Thank you kindly for this consult. I will follow. Total time spent 70 minutes with >50% of time spent with patient/family coordinating/discussing plan of care as well as collaborating with physician and transplant case manager.
--- NOTE | 2017-09-18 17:13 | DIAGNOSTIC IMAGING REPORT ---
HEAD COMBO CLINICAL HISTORY: Esophageal cancer. Altered mental status. Evaluate for metastatic disease. COMPARISON STUDY: MRI of the brain June 16, 2016. TECHNIQUE: Axial images of the head were obtained before and after intravenous administration of 92 cc Optiray 320 IV. FINDINGS: This exam is moderately compromised by motion artifact. No acute intracranial hemorrhage is present. There is a 7.5 x 4.3 cm hypodensity involving the right parietal and occipital lobes with loss of yeager-white differentiation and mild mass effect with mild compression of the occipital horn of the right lateral ventricle. This has no significant enhancement. Postcontrast images demonstrate abrupt cut off of the right posterior cerebral artery. Basilar cisterns are patent. There are no extra-axial collections. No enhancing lesions are identified on this examination. No suspicious calvarial lesions are identified. Visualized portions of the sinuses and mastoid air cells are clear. IMPRESSION: 1. 7.5 x 4.3 cm hypodensity with loss of yeager-white differentiation within the right parietal and occipital lobes with mild mass effect and no significant enhancement. Abrupt cut off of the right posterior cerebral artery indicating vessel occlusion. The findings are consistent with an acute to subacute right [employer] territory infarct. Findings discussed with Dr. Robledo at time of dictation. 2. No evidence for metastatic disease. Electronically signed by: Donovan Reyes M.D. 09/18/2017 5:11 PM Dictated Date/Time: 09/18/2017 4:26 PM
[2017-09-18] MEDS ORDERED: ACETAMINOPHEN IV 650 MG in EMPTY BAG 0 ML IV PRN (17:15)
[2017-09-18] MEDS ORDERED: MICONAZOLE NITRATE POWDER 43 GM EXT PRN (18:00)
[2017-09-18] MEDS ORDERED: NURSING DECISION MEDICATION ORDER SCH (18:00)
[2017-09-18 19:15] VITALS: O2SAT 90
[2017-09-18] MEDS: MoRPHine SULFATE 2 MG/ML CARP IV PRN (20:59)
[2017-09-18] MEDS ORDERED: CLONAZEPAM 0.5 MG TAB PO SCH (21:00)
[2017-09-18 23:41] VITALS: BP 158/75; PULSE 92; TEMP 36.5; O2SAT 90
[2017-09-19] VITALS (7 sets, daily range): BP systolic 122–161; BP diastolic 62–78; PULSE 84–108; TEMP 36.3–37.3; O2SAT 90–95; BMI 23.8
[2017-09-19] MEDS: LORAZEPAM INJ 1 MG in SYRINGE 0.5 ML IV PRN (00:37)
--- NOTE | 2017-09-19 08:04 | Clinical Documentation Query ---
KAMLESH Espitia : CLINICAL DOCUMENTATION QUERY Patient is a 67 year old male admitted for evaluation of confusion, increased care needs, and complaint of suprapubic pain. CT scan of the brain on hospital day #2 demonstrated a large right posterior circulation stroke. As able, please provide clinical opinion as to whether or not this finding was present on admission. Thank you. In your clinical opinion is this patient being managed for: (x ) Cerebral infarction, POA ( ) Cerebral infarction, not POA ( ) Not Agree ( ) Other explanation of clinical findings (Please Explain) ( ) Unable to determine (Please Define) ( ) Need to Discuss The medical record reflects the following clinical findings, treatment, and risk factors. Clinical Indicators: As above Treatment: Pending inpatient hospice Risk Factors: Cancer Please clarify and document your clinical opinion in the progress notes and discharge summary. Terms such as "probable", "suspected", "likely", "questionable", "possible", or "still to be ruled out" are acceptable. IF IN AGREEMENT, YOU MUST DOCUMENT ABOVE DIAGNOSTIC STATEMENT IN DAILY PROGRESS NOTES AND DISCHARGE SUMMARY. This document is not part of the patient's record. Thank You, Nirmal Red, RN [phone]
[2017-09-19] MEDS: ONDANSETRON INJ 2 MG/ML 2 ML VIAL IV PRN (08:44)
[2017-09-19] MEDS: MoRPHine SULFATE 2 MG/ML CARP IV PRN ×3 (08:54→22:05)
[2017-09-19] MEDS: ESCITALOPRAM OXALATE 20 MG TAB PO SCH ×2 (09:33→09:34)
[2017-09-19] MEDS: LORAZEPAM 2 MG/ML 1 ML VIAL IV PRN (10:56)
[2017-09-19] MEDS: CIPROFLOXACIN / D5W 400 MG in PREMIXED IN D5W 200 ML IV SCH ×2 (10:57→23:18)
[2017-09-19] MEDS: MoRPHine SULFATE 5 MG/0.25 ML UDP PO PRN (12:01)
[2017-09-19] MEDS: MoRPHine SULFATE 4 MG/ML 1 ML CARP\\VIAL IV PRN (12:58)
--- NOTE | 2017-09-19 13:18 | Medical Student: [facility] ---
Med Student Progress Note Date of Service Sep 19, 2017. Subjective Pt evaluation today including: conversation w/ patient, conversation w/ family , physical exam, lab review, review of studies Voiding: pereira catheter in place Today Mr. Ayala told me that he was doing "just ok". He has some confusion but it is difficult to get alot of information out of him as he typically responds with simple yes or no answers. He did ask for his , who was not in the room, but will be visiting later today. He tells me that he is having some abdominal pain and some suprapubic pain. He is voiding via a Pereira catheter. When I arrived into the room his body was contorted. He does express an interest in joanne mayra when asked if he would like a drink, and I have been able to provide him with that as liquid sustenance. Yesterday afternoon, I was able to talk with the patient's . She told me that she felt that he was significantly different than how he is at baseline. She noticed a fairly abrupt change one evening. She described that she needed assistance getting him into bed 3 days ago and that normally he does not require assistance. In addition to this weakness, she noticed that he was having trouble focusing on things, and would not know where to look in the room on occasion. I noticed the same when I visited him. The patient has a history of diabetes mellitis, HPL, and metastatic esophageal carcinoma. The patient was put on hospice but then the felt like she was not able to care for him in that setting as his condition has worsened. Objective Vital Signs Date Time Temp Pulse Resp B/P (MAP) Pulse Ox O2 Delivery O2 Flow Rate FiO2 09/19/17 11:15 36.7 84 16 161/69 (99) 90 Nasal Cannula 2.0 09/19/17 08:00 Nasal Cannula 2.0 09/19/17 07:14 36.7 92 16 135/65 (88) 91 Nasal Cannula 2.0 09/19/17 04:01 36.6 89 20 147/62 (90) 92 2.0 09/19/17 00:00 90 2.0 09/18/17 23:41 36.5 92 20 158/75 (102) 90 2.0 92 09/18/17 19:15 90 2.0 09/18/17 15:40 Room Air Physical Exam General Appearance: + mild distress, + cachetic ENT: hearing grossly normal Respiratory/Chest: no respiratory distress, no accessory muscle use Cardiovascular: no edema, no JVD Laboratory Results Last 24 Hours Test 09/18/17 16:49 09/18/17 20:29 Bedside Glucose 130 mg/dl 170 mg/dl Medications Current Inpatient Medications Medications (Trade) Dose Ordered Sig/Agnieszka Route Start Time Stop Time Status Last Admin Dose Admin Escitalopram Oxalate (Lexapro Tab) 20 mg DAILY PO 09/18/17 08:00 10/18/17 08:59 09/18/17 08:27 20 MG Hydromorphone HCl (Dilaudid Inj) 0.5 mg Q2H PRN IV 09/17/17 21:45 10/01/17 21:44 Al Hydrox/Mg Hydrox/Simethicone (Maalox Max Susp) 15 ml Q4H PRN PO 09/17/17 21:45 10/17/17 21:44 Magnesium Hydroxide (Milk Of Magnesia Susp) 30 ml Q6H PRN PO 09/17/17 21:45 10/17/17 21:44 Ondansetron HCl (Zofran Inj) 4 mg Q6H PRN IV 09/17/17 21:45 10/17/17 21:44 09/19/17 08:44 4 MG Glucose (Glucose 40% Gel) 15-30 GRAMS 15 GRAMS... UD PRN PO 09/17/17 21:45 10/17/17 21:44 Glucose (Glucose Chew Tab) 4-8 Tablets 4 Tabl... UD PRN PO 09/17/17 21:45 10/17/17 21:44 Dextrose (Dextrose 50% 50ML Syringe) 25-50ML OF 50% DW IV FOR... UD PRN IV 09/17/17 21:45 10/17/17 21:44 Glucagon (Glucagon Inj) 1 mg UD PRN SQ 09/17/17 21:45 10/17/17 21:44 Olanzapine (Zyprexa Zydis Od Tab) 1.25 mg HS PRN PO 09/17/17 21:45 10/17/17 21:44 Ciprofloxacin/ Dextrose 400 mg/ Prmx 200 ml @ 100 mls/hr Q12H IV 09/17/17 23:00 09/27/17 22:59 09/19/17 10:57 100 MLS/HR Miscellaneous (Iv Fluids Completed) 1 ea PRN PRN N/A 09/17/17 22:45 09/17/18 22:44 Lorazepam (Ativan Inj) 1 mg Q4H PRN IV 09/18/17 12:30 10/18/17 12:29 09/19/17 10:56 1 MG Lorazepam (Ativan Inj) 0.5 mg Q4H PRN IV 09/18/17 12:30 10/18/17 12:29 Morphine Sulfate (MoRPHine SULFATE INJ) 4 mg Q4H PRN IV 09/18/17 12:30 10/02/17 12:29 Morphine Sulfate (MoRPHine SULFATE INJ) 2 mg Q4H PRN IV 09/18/17 12:30 10/02/17 12:29 09/19/17 08:54 2 MG Hyoscyamine Sulfate (Levsin Tab) 0.125 mg Q6H PRN PO 09/18/17 12:30 10/18/17 12:29 Promethazine HCl 12.5 mg/Sodium Chloride 50.5 ml @ 204 mls/hr Q6H PRN IV 09/18/17 12:30 10/18/17 12:29 Lorazepam 1 mg/ Syringe 1 ml @ 1 mls/min Q4H PRN IV 09/18/17 13:00 10/18/17 12:59 09/19/17 00:37 1 MLS/MIN Lorazepam 0.5 mg/ Syringe 1 ml @ 1 mls/min Q4H PRN IV 09/18/17 13:00 10/18/17 12:59 Ioversol (Optiray 320) 125 ml UD PRN IV 09/18/17 15:30 09/22/17 15:29 Acetaminophen 650 mg/Empty Bag 65 ml @ 260 mls/hr Q6H PRN IV 09/18/17 17:15 10/18/17 17:14 09/18/17 18:30 260 MLS/HR Miconazole Nitrate (Desenex Powder) 1 appln PRN PRN EXT 09/18/17 18:00 10/18/17 17:59 Morphine Sulfate (Roxanol Oral Soln) 5 mg Q2H PRN PO 09/19/17 11:00 10/03/17 10:59 09/19/17 12:01 5 MG Assessment and Plan Assessment and Plan: Impression: Patient is a 67 year old man with 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 A CT scan looking for brain mets yesterday revealed a right parieto- occipital infarct. A/P: Metastatic esophageal carcinoma - Palliative care initiated, with priority on comfort measures and pain control , and help with restlessness. -This to be achieved with morphine, Ativan, and Haldol when deemed medically appropriate. Right ischemic stroke in parieto-occipital area with [employer] infarct - Aspirin 81mg daily -Patient is not a candidate for therapy; other forms of risk factor modification (diet, exercise) would unlikely provide a benefit to the patient at this time. Other medical conditions of DM, HPL will not be treated secondary to patient's condition
--- NOTE | 2017-09-19 15:52 | Palliative Care Progress Note ---
Palliative Care Progress Note Date of Service Sep 19, 2017. Subjective Pt evaluation today including: conversation w/ family, physical exam, chart review, conversation w/ solar energy consultant and designer (Dr. Becerra), review of inpatient medication list Pain: patient is sleeping at this time PO Intake: small amounts of PO intake, but is able to tolerate Voiding: pereira catheter in place -Patient quite restless and agitated in bed this morning. Required several doses of IV morphine and a dose of IV Ativan to calm him down. -He is now sleeping peacefully and quietly. I did not wake him to do an assessment. -CT scan yesterday showed right parietal/occipital infarct. was made aware last evening by Dr. Robledo. No intervention pursued, comfort measures only continues. Patient is admitted under hospice care. Review of Systems not able to obtain ROS at this time due to patient condition and family request to not wake patient. Objective Vital Signs Date Time Temp Pulse Resp B/P (MAP) Pulse Ox O2 Delivery O2 Flow Rate FiO2 09/19/17 15:06 36.3 101 18 156/78 (104) 90 09/19/17 11:15 36.7 84 16 161/69 (99) 90 Nasal Cannula 2.0 09/19/17 08:00 Nasal Cannula 2.0 09/19/17 07:14 36.7 92 16 135/65 (88) 91 Nasal Cannula 2.0 09/19/17 04:01 36.6 89 20 147/62 (90) 92 2.0 09/19/17 00:00 90 2.0 09/18/17 23:41 36.5 92 20 158/75 (102) 90 2.0 92 09/18/17 19:15 90 2.0 09/18/17 15:40 Room Air Physical Exam General Appearance: no apparent distress, + thin ENT: hearing grossly normal Neck: supple, no JVD Respiratory/Chest: lungs clear, no respiratory distress, no accessory muscle use Cardiovascular: regular rate, rhythm, no edema, + normal peripheral pulses Abdomen: normal bowel sounds Neurologic/Psychiatric: + pertinent finding (sleeping soundly while I was in room) Skin: + mottled (tipes of toes bilaterally) Laboratory Results Last 24 Hours Test 09/18/17 16:49 09/18/17 20:29 Bedside Glucose 130 mg/dl 170 mg/dl Assessment and Plan Problem list: Altered mental status/delirium Headaches Suprapubic pain Abnormal UA Metastatic esophageal cancer- only being treated holistically with herbal meds Decreased PO intake Goals of care (Z51.5) Palliative care recs: -Comfort measures only. -Patient found to have acute right parietal/occipital infarct on CT scan last evening. Per patient's wishes and goals of care, no intervention or escalation of care will be pursued. -Patient is admitted under hospice care through [facility]. -Was too agitated and restless to take PO or sublingual medications today. Has had a total of 8mg IV morphine and 5mg PO Roxanol (totalling about 10mg IV) in 24 hours. I do not think he needs a continuous infusion at this time. If he remains calm, he may be able to be transitioned to PO/SL. If not, IV meds will continue and continuous morphine infusion can be used. 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 -Continue medicines as ordered at this time. -Still recommend exploring SNF options in case patient levels out and is able to be transferred out of hospital. Referrals were made by director of casework department. -Support and education given to patient's family at bedside. They are appreciative and deny questions/concerns. Thank you kindly for this consult. I will continue to follow as needed. Palliative Performance Scale: 20 %
--- NOTE | 2017-09-19 18:23 | Progress Note ---
Subjective Date of Service: Sep 19, 2017. Subjective Pt evaluation today including: conversation w/ family, physical exam, chart review, lab review, review of studies, review of inpatient medication list no menaingful HPI or ROS obtainable from pt now, but was discussing with nursing frequently tghroughout the day - was much more uncomfortable, pain meds escalated, now comfortable. appreciative of his being more comfortable now offered empathy and support she notes can't take care of him at home now. open to inpt hospice or snf for comfort care Problem List Medical Problems: (1) Abdominal pain Status: Acute (2) Abdominal pain Status: Acute (3) Constipation Status: Acute (4) Dehydration Status: Acute (5) Esophageal cancer Status: Acute (6) Metastatic cancer Status: Acute (7) Splenic infarct Status: Acute Review of Systems ROS otherwise unobtainable except for as above Objective Vital Signs Date Time Temp Pulse Resp B/P (MAP) Pulse Ox O2 Delivery O2 Flow Rate FiO2 09/19/17 16:00 Nasal Cannula 2.0 09/19/17 15:06 36.3 101 18 156/78 (104) 90 09/19/17 11:15 36.7 84 16 161/69 (99) 90 Nasal Cannula 2.0 09/19/17 08:00 Nasal Cannula 2.0 09/19/17 07:14 36.7 92 16 135/65 (88) 91 Nasal Cannula 2.0 09/19/17 04:01 36.6 89 20 147/62 (90) 92 2.0 09/19/17 00:00 90 2.0 09/18/17 23:41 36.5 92 20 158/75 (102) 90 2.0 92 09/18/17 19:15 90 2.0 Physical Exam General Appearance: no apparent distress Neck: trachea midline Respiratory/Chest: no respiratory distress, no accessory muscle use Neurologic/Psychiatric: sql report developer II-XII nml as tested Skin: normal color, warm/dry Laboratory Results Last 24 Hours Test 09/18/17 20:29 Bedside Glucose 170 mg/dl Assessment and Plan Unfortunate 67 y/o M Hx DM, HPL, metastatic esophageal CA. The pt transitioned to hospice care as an outpt but due to increased confusion, he could not be cared for by his and complained of suprapubic pain, he has an indweling Pereira, the catheter was changed. Pt was seen by his hospice service and maybe transferred to inpatient hospice encephalopathy, ct head with contrast to evaluate for metastatic disease unfortunately shows large posterior circulation stroke on right, strongly suspect this is the cause for his decline a few days prior to admission - especially since notes he abruptly worsened as would be pattern for CVA cerebral infarction present on admission - see above. no benefit to secondary risk reduction, hence no further w/u at this time. agrees pain - diffuse, bladder seems bad but also other areas. pereira draining repeat culture negative. ?just pain due to pereira in place. improved now. will work to long/short acting pain mregimen as best as possible UA is abnormal, outpt urine culture is negative from 09/15, will reculture with pain continue with Pereira HPL, DM - will not be treated considering pt's hospice status
[2017-09-20] MEDS: LORAZEPAM INJ 1 MG in SYRINGE 0.5 ML IV PRN ×3 (00:24→19:52)
[2017-09-20] MEDS: MoRPHine SULFATE 2 MG/ML CARP IV PRN (02:42)
[2017-09-20 04:00] VITALS: BP 166/79; PULSE 18; PULSE 87; TEMP 36.9; O2SAT 97
[2017-09-20 06:35] VITALS: Ht 170.2 cm; Wt 69.4 kg
[2017-09-20 07:14] VITALS: BP 155/91; PULSE 94; TEMP 36.5; O2SAT 95
[2017-09-20] MEDS: ESCITALOPRAM OXALATE 20 MG TAB PO SCH (07:14)
[2017-09-20] MEDS: MoRPHine SULFATE 4 MG/ML 1 ML CARP\\VIAL IV PRN ×5 (07:24→20:56)
[2017-09-20] MEDS: CIPROFLOXACIN / D5W 400 MG in PREMIXED IN D5W 200 ML IV SCH (10:23)
[2017-09-20 10:26] VITALS: TEMP 36.5
[2017-09-20] MEDS ORDERED: NURSING VERBAL MED ORDER ONE ×2 (11:30→12:30)
[2017-09-20 11:46] VITALS: BP 131/77; PULSE 90; TEMP 36.7; O2SAT 90
[2017-09-20] MEDS ORDERED: FENTANYL 12 MCG/HR TDSY ONE (12:31)
[2017-09-20] MEDS: CHECK FENTANYL PATCH PLACEMENT SCH (15:31)
--- NOTE | 2017-09-20 18:17 | Progress Note ---
Subjective Date of Service: Sep 20, 2017. Subjective no HPI or ROS Obtainable pleased with progress -notes thathe's been much more comfortable consistently since fentanyl patch applied. discussed plan of care, all in agreement Problem List Medical Problems: (1) Abdominal pain Status: Acute (2) Abdominal pain Status: Acute (3) Constipation Status: Acute (4) Dehydration Status: Acute (5) Esophageal cancer Status: Acute (6) Metastatic cancer Status: Acute (7) Splenic infarct Status: Acute Review of Systems ROS otherwise unobtainable except for as above Objective Vital Signs Date Time Temp Pulse Resp B/P (MAP) Pulse Ox O2 Delivery O2 Flow Rate FiO2 09/20/17 16:00 Nasal Cannula 2.0 09/20/17 11:46 36.7 90 18 131/77 (95) 90 Nasal Cannula 2.0 09/20/17 10:26 36.5 09/20/17 08:00 Nasal Cannula 2.0 09/20/17 07:14 36.5 94 18 155/91 (112) 95 Nasal Cannula 2.0 09/20/17 04:00 36.9 87 166/79 (108) 97 Nasal Cannula 2.0 18 09/20/17 02:30 Nasal Cannula 3.0 09/19/17 23:29 37.3 108 18 122/68 (86) 95 Nasal Cannula 2.0 09/19/17 20:15 Nasal Cannula 2.0 09/19/17 18:52 36.6 85 18 151/73 (99) 93 2.0 Physical Exam General Appearance: no apparent distress Respiratory/Chest: no respiratory distress, no accessory muscle use Skin: normal color Assessment and Plan Unfortunate 67 y/o M Hx DM, HPL, metastatic esophageal CA. The pt transitioned to hospice care as an outpt but due to increased confusion, he could not be cared for by his and complained of suprapubic pain, he has an indweling Pereira, the catheter was changed. Pt was seen by his hospice service and maybe transferred to inpatient hospice encephalopathy, ct head with contrast to evaluate for metastatic disease unfortunately shows large posterior circulation stroke on right, strongly suspect this is the cause for his decline a few days prior to admission - especially since notes he abruptly worsened as would be pattern for CVA cerebral infarction present on admission - see above. no benefit to secondary risk reduction, hence no further w/u at this time. agrees pain - diffuse, bladder seems bad but also other areas. pereira draining repeat culture negative. ?just pain due to pereira in place. improved now. added fentanyl patch with improved pain. goal will be "basal /bolus" regimen with good round the clock control before he's safe/stable for transfer to snf UA is abnormal, outpt urine culture is negative from 09/15, will reculture with pain continue with Pereira HPL, DM - will not be treated considering pt's hospice status
--- NOTE | 2017-09-20 23:15 | Medical Student: [facility] ---
Med Student Progress Note Date of Service Sep 20, 2017. Subjective Pt evaluation today including: conversation w/ family Voiding: pereira catheter in place Patient is resting comfortably during my visit and assessment. The patient's is in the room, and I spoke with her exclusively as the patient was asleep. The states the patient has been asleep for most of the day, and just had a few sips of joanne mayra today. She said that today he seems comfortable. Per staff, last night the patient was more restless on IV morphine at varying 2 and 4 mg doses. He has a transdermal pain relief patch during my visit, and the tells me he has been much better since that was put on. Review of Systems Notes: ROS not taken due to patient's sleeping status Objective Vital Signs Date Time Temp Pulse Resp B/P (MAP) Pulse Ox O2 Delivery O2 Flow Rate FiO2 09/20/17 16:00 Nasal Cannula 2.0 09/20/17 11:46 36.7 90 18 131/77 (95) 90 Nasal Cannula 2.0 09/20/17 10:26 36.5 09/20/17 08:00 Nasal Cannula 2.0 09/20/17 07:14 36.5 94 18 155/91 (112) 95 Nasal Cannula 2.0 09/20/17 04:00 36.9 87 166/79 (108) 97 Nasal Cannula 2.0 18 09/20/17 02:30 Nasal Cannula 3.0 09/19/17 23:29 37.3 108 18 122/68 (86) 95 Nasal Cannula 2.0 Physical Exam General Appearance: no apparent distress, + cachetic Comments: Other than observation, no physical exam done secondary to patient's sleeping status Medications Current Inpatient Medications Medications (Trade) Dose Ordered Sig/Agnieszka Route Start Time Stop Time Status Last Admin Dose Admin Escitalopram Oxalate (Lexapro Tab) 20 mg DAILY PO 09/18/17 08:00 10/18/17 08:59 09/18/17 08:27 20 MG Hydromorphone HCl (Dilaudid Inj) 0.5 mg Q2H PRN IV 09/17/17 21:45 10/01/17 21:44 Al Hydrox/Mg Hydrox/Simethicone (Maalox Max Susp) 15 ml Q4H PRN PO 09/17/17 21:45 10/17/17 21:44 Magnesium Hydroxide (Milk Of Magnesia Susp) 30 ml Q6H PRN PO 09/17/17 21:45 10/17/17 21:44 Ondansetron HCl (Zofran Inj) 4 mg Q6H PRN IV 09/17/17 21:45 10/17/17 21:44 09/19/17 08:44 4 MG Glucose (Glucose 40% Gel) 15-30 GRAMS 15 GRAMS... UD PRN PO 09/17/17 21:45 10/17/17 21:44 Glucose (Glucose Chew Tab) 4-8 Tablets 4 Tabl... UD PRN PO 09/17/17 21:45 10/17/17 21:44 Dextrose (Dextrose 50% 50ML Syringe) 25-50ML OF 50% DW IV FOR... UD PRN IV 09/17/17 21:45 10/17/17 21:44 Glucagon (Glucagon Inj) 1 mg UD PRN SQ 09/17/17 21:45 10/17/17 21:44 Olanzapine (Zyprexa Zydis Od Tab) 1.25 mg HS PRN PO 09/17/17 21:45 10/17/17 21:44 Miscellaneous (Iv Fluids Completed) 1 ea PRN PRN N/A 09/17/17 22:45 09/17/18 22:44 Lorazepam (Ativan Inj) 1 mg Q4H PRN IV 09/18/17 12:30 10/18/17 12:29 09/19/17 10:56 1 MG Lorazepam (Ativan Inj) 0.5 mg Q4H PRN IV 09/18/17 12:30 10/18/17 12:29 Hyoscyamine Sulfate (Levsin Tab) 0.125 mg Q6H PRN PO 09/18/17 12:30 10/18/17 12:29 Promethazine HCl 12.5 mg/Sodium Chloride 50.5 ml @ 204 mls/hr Q6H PRN IV 09/18/17 12:30 10/18/17 12:29 Lorazepam 1 mg/ Syringe 1 ml @ 1 mls/min Q4H PRN IV 09/18/17 13:00 10/18/17 12:59 09/20/17 19:52 1 MLS/MIN Lorazepam 0.5 mg/ Syringe 1 ml @ 1 mls/min Q4H PRN IV 09/18/17 13:00 10/18/17 12:59 Ioversol (Optiray 320) 125 ml UD PRN IV 09/18/17 15:30 09/22/17 15:29 Acetaminophen 650 mg/Empty Bag 65 ml @ 260 mls/hr Q6H PRN IV 09/18/17 17:15 10/18/17 17:14 09/18/17 18:30 260 MLS/HR Miconazole Nitrate (Desenex Powder) 1 appln PRN PRN EXT 09/18/17 18:00 10/18/17 17:59 Morphine Sulfate (Roxanol Oral Soln) 5 mg Q2H PRN PO 09/19/17 11:00 10/03/17 10:59 09/19/17 12:01 5 MG Morphine Sulfate (MoRPHine SULFATE INJ) 4 mg Q1H PRN IV 09/20/17 12:00 10/04/17 11:59 09/20/17 20:56 4 MG Fentanyl (Duragesic Patch) 12 mcg Q3D TD 09/23/17 09:00 10/07/17 08:59 Miscellaneous (Fentanyl Patch Remove & Waste) 1 ea Q3D N/A 09/23/17 08:59 10/23/17 08:58 Miscellaneous Information (Check Fentanyl Patch Placement) 1 ea QS N/A 09/20/17 16:00 10/20/17 15:59 09/20/17 15:31 1 EA Assessment and Plan Assessment and Plan: Impression: Patient is a 67 year old man with 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 A CT scan looking for brain mets 2 days ago revealed a right parieto- occipital infarct. A/P: Metastatic esophageal carcinoma - Palliative care initiated, with priority on comfort measures and pain control , and help with restlessness. -This to be achieved with morphine, Ativan, and Haldol when deemed medically appropriate. -Today, a fentanyl transdermal patch was added for more appropriate pain relief at baseline. -Discharge can be considered at a future time when the patient does not need IV access. 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 Other medical conditions of DM, HPL will not be treated secondary to patient's condition
[2017-09-21 00:30] VITALS: O2SAT 90
[2017-09-21] MEDS: MoRPHine SULFATE 4 MG/ML 1 ML CARP\\VIAL IV PRN ×5 (02:22→23:22)
[2017-09-21] MEDS: ESCITALOPRAM OXALATE 20 MG TAB PO SCH (07:33)
[2017-09-21 07:54] VITALS: BP 131/79; PULSE 101; TEMP 36.4; O2SAT 90
[2017-09-21] MEDS: FENTANYL PATCH REMOVE & WASTE SCH (08:46)
[2017-09-21] MEDS: FENTANYL 25 MCG/HR TDSY TD SCH (08:51)
[2017-09-21] MEDS: MoRPHine SULFATE 5 MG/0.25 ML UDP PO PRN ×2 (09:11→13:30)
[2017-09-21] MEDS: LORAZEPAM 2 MG/ML 1 ML VIAL IV PRN (13:30)
[2017-09-21 15:08] VITALS: BP 141/94; PULSE 104; TEMP 36.8; O2SAT 94
[2017-09-21] MEDS: CHECK FENTANYL PATCH PLACEMENT SCH ×3 (15:21→23:21)
--- NOTE | 2017-09-21 15:24 | Progress Note ---
Subjective Date of Service: Sep 21, 2017. Subjective Pt evaluation today including: conversation w/ patient, physical exam, chart review, review of inpatient medication list denies pain. denies problems. asks me to leave him alone. reiterates that he' s OK Problem List Medical Problems: (1) Abdominal pain Status: Acute (2) Abdominal pain Status: Acute (3) Constipation Status: Acute (4) Dehydration Status: Acute (5) Esophageal cancer Status: Acute (6) Metastatic cancer Status: Acute (7) Splenic infarct Status: Acute Review of Systems ROS otherwise unobtainable except for as above Objective Vital Signs Date Time Temp Pulse Resp B/P (MAP) Pulse Ox O2 Delivery O2 Flow Rate FiO2 09/21/17 15:08 36.8 104 20 141/94 (110) 94 Room Air 09/21/17 08:00 Nasal Cannula 2.0 09/21/17 07:54 36.4 101 18 131/79 (96) 90 Nasal Cannula 2.0 09/21/17 00:30 90 Nasal Cannula 2.0 09/20/17 16:00 Nasal Cannula 2.0 Physical Exam General Appearance: no apparent distress Neck: trachea midline Respiratory/Chest: no respiratory distress, no accessory muscle use Neurologic/Psychiatric: braid cutter II-XII nml as tested, alert Skin: normal color Assessment and Plan Unfortunate 67 y/o M Hx DM, HPL, metastatic esophageal CA. The pt transitioned to hospice care as an outpt but due to increased confusion, he could not be cared for by his and complained of suprapubic pain, he has an indweling Pereira, the catheter was changed. Pt was seen by his hospice service and maybe transferred to inpatient hospice encephalopathy, ct head with contrast to evaluate for metastatic disease unfortunately shows large posterior circulation stroke on right, strongly suspect this is the cause for his decline a few days prior to admission - especially since notes he abruptly worsened as would be pattern for CVA cerebral infarction present on admission - see above. no benefit to secondary risk reduction, hence no further w/u at this time. agrees pain - diffuse, bladder seems bad but also other areas. pereira draining repeat culture negative. ?just pain due to pereira in place. improved now. added fentanyl patch with improved pain control but still needing a fairly high amount of breakthrough meds and doesn't appear oversedated. increase patch to 25mcg. goal will be "basal /bolus" regimen with good round the clock control before he's safe/stable for transfer to snf abnormal UA - repeat Cx negative, stopped abx HPL, DM - will not be treated considering pt's hospice status
--- NOTE | 2017-09-21 21:14 | Medical Student: [facility] ---
Med Student Progress Note Date of Service Sep 21, 2017. Subjective Pt evaluation today including: conversation w/ patient Pain: Denies pain during my visit. Voiding: pereira catheter in place When I visited the patient today, he appears to be resting but was more easily aroused by my voice. He was not very responsive to my questioning, and the only question I was able to get a definitive answer to was that he was not in pain. He was resting comfortably. He asked me for some joanne mayra, but when I got it and came back within 3-5 minutes he was no longer interested in it and did not take a drink of it. Review of Systems Notes: ROS not performed secondary to patient's condition. Objective Vital Signs Date Time Temp Pulse Resp B/P (MAP) Pulse Ox O2 Delivery O2 Flow Rate FiO2 09/21/17 16:00 Nasal Cannula 2.0 09/21/17 15:08 36.8 104 20 141/94 (110) 94 Room Air 09/21/17 08:00 Nasal Cannula 2.0 09/21/17 07:54 36.4 101 18 131/79 (96) 90 Nasal Cannula 2.0 09/21/17 00:30 90 Nasal Cannula 2.0 Physical Exam General Appearance: WD/WN, no apparent distress, + cachetic Comments: No physical exam performed other than observation secondary to patient's status. Medications Current Inpatient Medications Medications (Trade) Dose Ordered Sig/Agnieszka Route Start Time Stop Time Status Last Admin Dose Admin Escitalopram Oxalate (Lexapro Tab) 20 mg DAILY PO 09/18/17 08:00 10/18/17 08:59 09/18/17 08:27 20 MG Hydromorphone HCl (Dilaudid Inj) 0.5 mg Q2H PRN IV 09/17/17 21:45 10/01/17 21:44 09/21/17 01:21 0.5 MG Al Hydrox/Mg Hydrox/Simethicone (Maalox Max Susp) 15 ml Q4H PRN PO 09/17/17 21:45 10/17/17 21:44 Magnesium Hydroxide (Milk Of Magnesia Susp) 30 ml Q6H PRN PO 09/17/17 21:45 10/17/17 21:44 Ondansetron HCl (Zofran Inj) 4 mg Q6H PRN IV 1/7/18 21:45 10/17/17 21:44 09/19/17 08:44 4 MG Glucose (Glucose 40% Gel) 15-30 GRAMS 15 GRAMS... UD PRN PO 09/17/17 21:45 10/17/17 21:44 Glucose (Glucose Chew Tab) 4-8 Tablets 4 Tabl... UD PRN PO 09/17/17 21:45 10/17/17 21:44 Dextrose (Dextrose 50% 50ML Syringe) 25-50ML OF 50% DW IV FOR... UD PRN IV 09/17/17 21:45 10/17/17 21:44 Glucagon (Glucagon Inj) 1 mg UD PRN SQ 09/17/17 21:45 10/17/17 21:44 Olanzapine (Zyprexa Zydis Od Tab) 1.25 mg HS PRN PO 09/17/17 21:45 10/17/17 21:44 Miscellaneous (Iv Fluids Completed) 1 ea PRN PRN N/A 09/17/17 22:45 09/17/18 22:44 Lorazepam (Ativan Inj) 1 mg Q4H PRN IV 09/18/17 12:30 10/18/17 12:29 09/21/17 13:30 1 MG Lorazepam (Ativan Inj) 0.5 mg Q4H PRN IV 09/18/17 12:30 10/18/17 12:29 Hyoscyamine Sulfate (Levsin Tab) 0.125 mg Q6H PRN PO 09/18/17 12:30 10/18/17 12:29 Promethazine HCl 12.5 mg/Sodium Chloride 50.5 ml @ 204 mls/hr Q6H PRN IV 09/18/17 12:30 10/18/17 12:29 Lorazepam 1 mg/ Syringe 1 ml @ 1 mls/min Q4H PRN IV 09/18/17 13:00 10/18/17 12:59 09/20/17 19:52 1 MLS/MIN Lorazepam 0.5 mg/ Syringe 1 ml @ 1 mls/min Q4H PRN IV 09/18/17 13:00 10/18/17 12:59 Ioversol (Optiray 320) 125 ml UD PRN IV 09/18/17 15:30 09/22/17 15:29 Acetaminophen 650 mg/Empty Bag 65 ml @ 260 mls/hr Q6H PRN IV 09/18/17 17:15 10/18/17 17:14 09/18/17 18:30 260 MLS/HR Miconazole Nitrate (Desenex Powder) 1 appln PRN PRN EXT 09/18/17 18:00 10/18/17 17:59 Morphine Sulfate (Roxanol Oral Soln) 5 mg Q2H PRN PO 09/19/17 11:00 10/03/17 10:59 09/21/17 13:30 5 MG Morphine Sulfate (MoRPHine SULFATE INJ) 4 mg Q1H PRN IV 09/20/17 12:00 10/04/17 11:59 09/21/17 19:55 4 MG Fentanyl (Duragesic Patch) 25 mcg Q3D@0900 TD 09/21/17 09:00 10/05/17 08:59 09/21/17 08:51 25 MCG Miscellaneous (Fentanyl Patch Remove & Waste) 1 ea Q3D@0859 N/A 09/21/17 08:59 10/21/17 08:58 09/21/17 08:46 1 EA Miscellaneous Information (Check Fentanyl Patch Placement) 1 ea QS N/A 09/21/17 16:00 10/21/17 15:59 09/21/17 15:21 1 EA Assessment and Plan Assessment and Plan: Assessment and Plan: Impression: Patient is a 67 year old man with 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 Patient has a recent history of an infarct.affecting the right parieto -occipital region. A/P: Metastatic esophageal carcinoma - Palliative care initiated, with priority on comfort measures and pain control , and help with restlessness. -This to be achieved with morphine, Ativan, and Haldol when deemed medically appropriate. -Today, a fentanyl transdermal patch was added for more appropriate pain relief at baseline. fentanyl dose was increased today to provide reasonable pain relief. -Discharge can be considered at a future time when the patient does not need IV access. 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 Other medical conditions of DM, HPL will not be treated secondary to patient's condition
[2017-09-22] MEDS: LORAZEPAM 2 MG/ML 1 ML VIAL IV PRN (01:39)
[2017-09-22] MEDS: MoRPHine SULFATE 4 MG/ML 1 ML CARP\\VIAL IV PRN ×3 (05:39→17:03)
[2017-09-22] MEDS: ESCITALOPRAM OXALATE 20 MG TAB PO SCH (08:00)
--- NOTE | 2017-09-22 08:48 | Medical Student: [facility] ---
Med Student Progress Note Date of Service Sep 22, 2017. Subjective Pt evaluation today including: physical exam, chart review Voiding: pereira catheter in place The patient is sleeping comfortably in the room when I waked in this morning. He is sleeping with breakfast near the bed, untouched. I tried to very gently arouse him by repeating his name and then lightly touching him, and he did not arouse. Nursing said that he required 1 dose of IV morphine overnight due to some restlessness and pain, but otherwise slept comfortably. Review of Systems Notes: ROS not obtained secondary to patient sleeping Objective Vital Signs Date Time Temp Pulse Resp B/P (MAP) Pulse Ox O2 Delivery O2 Flow Rate FiO2 09/22/17 00:00 Nasal Cannula 2.0 09/21/17 16:00 Nasal Cannula 2.0 09/21/17 15:08 36.8 104 20 141/94 (110) 94 Room Air Physical Exam General Appearance: no apparent distress, + cachetic Comments: General observations noted, but no physical exam performed secondary to patient sleeping. Medications Current Inpatient Medications Medications (Trade) Dose Ordered Sig/Agnieszka Route Start Time Stop Time Status Last Admin Dose Admin Escitalopram Oxalate (Lexapro Tab) 20 mg DAILY PO 09/18/17 08:00 10/18/17 08:59 09/18/17 08:27 20 MG Hydromorphone HCl (Dilaudid Inj) 0.5 mg Q2H PRN IV 09/17/17 21:45 10/01/17 21:44 09/21/17 01:21 0.5 MG Al Hydrox/Mg Hydrox/Simethicone (Maalox Max Susp) 15 ml Q4H PRN PO 09/17/17 21:45 10/17/17 21:44 Magnesium Hydroxide (Milk Of Magnesia Susp) 30 ml Q6H PRN PO 09/17/17 21:45 10/17/17 21:44 Ondansetron HCl (Zofran Inj) 4 mg Q6H PRN IV 09/17/17 21:45 10/17/17 21:44 09/19/17 08:44 4 MG Glucose (Glucose 40% Gel) 15-30 GRAMS 15 GRAMS... UD PRN PO 09/17/17 21:45 10/17/17 21:44 Glucose (Glucose Chew Tab) 4-8 Tablets 4 Tabl... UD PRN PO 09/17/17 21:45 10/17/17 21:44 Dextrose (Dextrose 50% 50ML Syringe) 25-50ML OF 50% DW IV FOR... UD PRN IV 09/17/17 21:45 10/17/17 21:44 Glucagon (Glucagon Inj) 1 mg UD PRN SQ 09/17/17 21:45 10/17/17 21:44 Olanzapine (Zyprexa Zydis Od Tab) 1.25 mg HS PRN PO 09/17/17 21:45 10/17/17 21:44 Miscellaneous (Iv Fluids Completed) 1 ea PRN PRN N/A 09/17/17 22:45 09/17/18 22:44 Lorazepam (Ativan Inj) 1 mg Q4H PRN IV 09/18/17 12:30 10/18/17 12:29 09/22/17 01:39 1 MG Lorazepam (Ativan Inj) 0.5 mg Q4H PRN IV 09/18/17 12:30 10/18/17 12:29 Hyoscyamine Sulfate (Levsin Tab) 0.125 mg Q6H PRN PO 09/18/17 12:30 10/18/17 12:29 Promethazine HCl 12.5 mg/Sodium Chloride 50.5 ml @ 204 mls/hr Q6H PRN IV 09/18/17 12:30 10/18/17 12:29 Lorazepam 1 mg/ Syringe 1 ml @ 1 mls/min Q4H PRN IV 09/18/17 13:00 10/18/17 12:59 09/20/17 19:52 1 MLS/MIN Lorazepam 0.5 mg/ Syringe 1 ml @ 1 mls/min Q4H PRN IV 09/18/17 13:00 10/18/17 12:59 Ioversol (Optiray 320) 125 ml UD PRN IV 09/18/17 15:30 09/22/17 15:29 Acetaminophen 650 mg/Empty Bag 65 ml @ 260 mls/hr Q6H PRN IV 09/18/17 17:15 10/18/17 17:14 09/18/17 18:30 260 MLS/HR Miconazole Nitrate (Desenex Powder) 1 appln PRN PRN EXT 09/18/17 18:00 2/7/18 17:59 Morphine Sulfate (Roxanol Oral Soln) 5 mg Q2H PRN PO 09/19/17 11:00 10/03/17 10:59 09/21/17 13:30 5 MG Morphine Sulfate (MoRPHine SULFATE INJ) 4 mg Q1H PRN IV 09/20/17 12:00 10/04/17 11:59 09/22/17 05:39 4 MG Fentanyl (Duragesic Patch) 25 mcg Q3D@0900 TD 09/21/17 09:00 10/05/17 08:59 09/21/17 08:51 25 MCG Miscellaneous (Fentanyl Patch Remove & Waste) 1 ea Q3D@0859 N/A 09/21/17 08:59 10/21/17 08:58 09/21/17 08:46 1 EA Miscellaneous Information (Check Fentanyl Patch Placement) 1 ea QS N/A 09/21/17 16:00 10/21/17 15:59 09/21/17 23:21 1 EA Assessment and Plan Assessment and Plan: Impression: Patient is a 67 year old man with 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 Patient has a recent history of an infarct.affecting the right parieto -occipital region. Patient is on comfort measures this hospitalization. A/P: Metastatic esophageal carcinoma - Palliative care initiated, with priority on comfort measures and pain control , and help with restlessness. -This to be achieved with morphine, Ativan, and Haldol if/when deemed medically appropriate. -yesterday, a fentanyl transdermal patch was added for more appropriate pain relief at baseline. fentanyl dose was increased to provide reasonable pain relief. -Discharge can be considered at a future time when the patient does not need IV access. 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 Other medical conditions of DM, HPL will not be treated secondary to patient's condition
[2017-09-22] MEDS: CHECK FENTANYL PATCH PLACEMENT SCH ×3 (08:56→23:51)
[2017-09-22] MEDS: MoRPHine SULFATE 5 MG/0.25 ML UDP PO PRN ×2 (11:03→15:06)
[2017-09-22] MEDS: LORAZEPAM INJ 1 MG in SYRINGE 0.5 ML IV PRN ×3 (11:15→23:51)
[2017-09-22] MEDS ORDERED: NURSING VERBAL MED ORDER ONE (11:15)
[2017-09-22] MEDS ORDERED: CLONAZEPAM 0.5 MG TAB PO STA (11:43)
[2017-09-22] MEDS ORDERED: CLONAZEPAM 0.5 MG TAB PO PRN (11:45)
--- NOTE | 2017-09-22 13:21 | Palliative Care Progress Note ---
Palliative Care Progress Note Date of Service Sep 22, 2017. Subjective Pt evaluation today including: conversation w/ patient (limited), conversation w/ family (), physical exam, chart review, conversation w/ information systems consultant (Dr. Becerra), review of inpatient medication list PO Intake: tolerating small amounts of PO soft foods/fluids Voiding: pereira catheter in place -Patient is restless and agitated today. Delirium seems worse today. -Has received now 5 doses of 4mg IV morphine in last 24 hours. One dose of 5mg PO Roxanol. -Has had 2 doses of IV lorazepam 1mg. - states patient is tolerating some PO food/liquid. Review of Systems unable to obtain due to agitation/delirium Objective Vital Signs Date Time Temp Pulse Resp B/P (MAP) Pulse Ox O2 Delivery O2 Flow Rate FiO2 09/22/17 08:00 Room Air 09/22/17 00:00 Nasal Cannula 2.0 09/21/17 16:00 Nasal Cannula 2.0 09/21/17 15:08 36.8 104 20 141/94 (110) 94 Room Air Physical Exam General Appearance: + mild distress (restless/agitated) ENT: hearing grossly normal Neck: supple, no JVD Respiratory/Chest: no respiratory distress, no accessory muscle use Cardiovascular: no edema, + normal peripheral pulses Abdomen: + pertinent finding (unable to assess abdomen at this time due to patient agitation) Neurologic/Psychiatric: + disoriented Skin: + mottled (tips of toes) Assessment and Plan Problem list: Altered mental status/delirium Agitation Headaches Suprapubic pain Abnormal UA Metastatic esophageal cancer- only being treated holistically with herbal meds Decreased PO intake Right parietal/occipital CVA Goals of care (Z51.5) Palliative care recs: -Comfort measures only. -Patient is admitted under hospice care through [facility]. -Recommend increasing Roxanol to 10mg PO/SL Q2h PRN pain/agitation/SOB. -Only use IV morphine if absolutely needed. -Can try clonazepam 0.5mg PO/SL BID for the agitation. This can be crushed and slurried if needed. Or give with applesauce/pudding as patient is able to take. -Hold off on increasing fentanyl patch at this time until we see how patient does with other medication changes. -No beds are available at the facilities previously chose. Case management is following. Thank you kindly for this consult. I will continue to follow as needed. Palliative Performance Scale: 20 % Continued [facility] stay due to: inadequate oral pain control, multiple IV medications needed, home environment unsafe for pt Discharge planning: uncertain
--- NOTE | 2017-09-22 16:12 | Progress Note ---
Subjective Date of Service: Sep 22, 2017. Subjective was doing better for a bit then had more restlessness again discussed wt palliative and family present as well seems overall to have better basal control but still has breakthrough pain and restlessness Problem List Medical Problems: (1) Abdominal pain Status: Acute (2) Abdominal pain Status: Acute (3) Constipation Status: Acute (4) Dehydration Status: Acute (5) Esophageal cancer Status: Acute (6) Metastatic cancer Status: Acute (7) Splenic infarct Status: Acute Review of Systems all other ROS otherwise negative except for as above Objective Vital Signs Date Time Temp Pulse Resp B/P (MAP) Pulse Ox O2 Delivery O2 Flow Rate FiO2 09/22/17 16:00 Room Air 09/22/17 08:00 Room Air 09/22/17 00:00 Nasal Cannula 2.0 Physical Exam General Appearance: no apparent distress (at the time of my eval) Eyes: EOMI ENT: hearing grossly normal Neck: trachea midline Respiratory/Chest: no respiratory distress, no accessory muscle use Extremities: normal range of motion Neurologic/Psychiatric: 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 The pt transitioned to hospice care as an outpt but due to increased confusion, he could not be cared for by his and complained of suprapubic pain, he has an indweling Gillis, the catheter was changed. Pt was seen by his hospice service and maybe transferred to inpatient hospice encephalopathy, ct head with contrast to evaluate for metastatic disease unfortunately shows large posterior circulation stroke on right, strongly suspect this is the cause for his decline a few days prior to admission - especially since notes he abruptly worsened as would be pattern for CVA cerebral infarction present on admission - see above. no benefit to secondary risk reduction, hence no further w/u at this time. agrees pain - basal control improved - continue fentanyl at 25mcg for now. breakthrough - increase roxanol to 10mg prn, keep IV at current dosing but give trial to PO as first line restlessness - pain control as above; also notes he took clonazepam to help at bedtime for a long time- will give trial to this preferential to IV ativan for hopefully longer half-life abnormal UA - repeat Cx negative, stopped abx HPL, DM - will not be treated considering pt's hospice status Continued [facility] stay due to: inadequate oral pain control, multiple IV medications needed, home environment unsafe for pt Discharge planning: uncertain
[2017-09-23] MEDS: MoRPHine SULFATE 4 MG/ML 1 ML CARP\\VIAL IV PRN (01:53)
[2017-09-23] MEDS: LORAZEPAM INJ 1 MG in SYRINGE 0.5 ML IV PRN ×2 (04:02→08:11)
[2017-09-23] MEDS: MoRPHine SULFATE 5 MG/0.25 ML UDP PO PRN (05:52)
[2017-09-23 07:42] VITALS: BP 110/75; PULSE 106; TEMP 36.9; O2SAT 90
[2017-09-23] MEDS: ESCITALOPRAM OXALATE 20 MG TAB PO SCH (08:00)
[2017-09-23] MEDS: CHECK FENTANYL PATCH PLACEMENT SCH ×2 (08:12→15:29)
[2017-09-23] MEDS ORDERED: CLONAZEPAM 1 MG TAB PO PRN (08:45)
[2017-09-23] MEDS ORDERED: FENTANYL PATCH REMOVE & WASTE SCH (08:59)
[2017-09-23] MEDS ORDERED: FENTANYL 12 MCG/HR TDSY TD SCH (09:00)
--- NOTE | 2017-09-23 20:55 | Progress Note ---
Subjective Date of Service: Sep 23, 2017. Subjective seen several times today d/w nursing - has been much more comfortable, much less restless, still does need IV morphine when he seems uncomfortable - even at the higher dosing the PO isn't working well enough notes he said goodbyes to everyone important yesterday, including her, and she believes he will pass soon Problem List Medical Problems: (1) Abdominal pain Status: Acute (2) Abdominal pain Status: Acute (3) Constipation Status: Acute (4) Dehydration Status: Acute (5) Esophageal cancer Status: Acute (6) Metastatic cancer Status: Acute (7) Splenic infarct Status: Acute Review of Systems ROS otherwise unobtainable except for as above Objective Vital Signs Date Time Temp Pulse Resp B/P (MAP) Pulse Ox O2 Delivery O2 Flow Rate FiO2 09/23/17 16:00 Room Air 09/23/17 08:12 Room Air 09/23/17 07:42 36.9 106 14 110/75 (87) 90 Room Air 09/23/17 00:00 Room Air Physical Exam General Appearance: no apparent distress Respiratory/Chest: no respiratory distress, no accessory muscle use Assessment and Plan Unfortunate 67 y/o M Hx DM, HPL, metastatic esophageal CA. The pt transitioned to hospice care as an outpt but due to increased confusion, he could not be cared for by his and complained of suprapubic pain, he has an indweling Gillis, the catheter was changed. Pt was seen by his hospice service and maybe transferred to inpatient hospice encephalopathy, ct head with contrast to evaluate for metastatic disease unfortunately shows large posterior circulation stroke on right, strongly suspect this is the cause for his decline a few days prior to admission - especially since notes he abruptly worsened as would be pattern for CVA cerebral infarction present on admission - see above. no benefit to secondary risk reduction, hence no further w/u at this time. agrees pain - basal control improved - continue fentanyl at 25mcg for now. breakthrough - doing well on IV morphine, even at higher doses PO has not been adequate, supporting ongoing inpatient hospice stay restlessness - pain control as above; clonazepam when taking PO, ativan when needing to give IV, much more calm today abnormal UA - repeat Cx negative, stopped abx HPL, DM - will not be treated considering pt's hospice status Continued [facility] stay due to: inadequate oral pain control, multiple IV medications needed, home environment unsafe for pt Discharge planning: uncertain
[2017-09-24] MEDS: CHECK FENTANYL PATCH PLACEMENT SCH ×3 (00:06→15:25)
[2017-09-24 00:16] VITALS: BP 118/72; PULSE 103; TEMP 36.8
[2017-09-24] MEDS: ESCITALOPRAM OXALATE 20 MG TAB PO SCH (08:00)
[2017-09-24] MEDS: FENTANYL 25 MCG/HR TDSY TD SCH (08:28)
[2017-09-24] MEDS: MoRPHine SULFATE 4 MG/ML 1 ML CARP\\VIAL IV PRN ×5 (08:28→16:33)
[2017-09-24] MEDS: FENTANYL PATCH REMOVE & WASTE SCH (08:39)
[2017-09-24] MEDS: LORAZEPAM INJ 1 MG in SYRINGE 0.5 ML IV PRN (14:47)
[2017-09-24] MEDS ORDERED: ATROPINE SULFATE 1% OP SOLN 5 ML BTL PO PRN (15:30)
[2017-09-24] MEDS ORDERED: SCOPOLAMINE 1.5 MG TDSY TD SCH (15:30)
[2017-09-24] MEDS ORDERED: CHECK SCOPOLAMINE PATCH PLACEMENT SCH (16:00)
--- NOTE | 2017-09-24 18:37 | Death Pronouncement Note ---
Pronouncement Note Date & Time of Sep 24, 2017. 1600 Pronouncement At time of pronouncement the patients pupils were fixed and dilated, there was no spontaneous respiratory effort, no palpable pulse, no audible heart tones, and no response to pain or voice.
--- NOTE | 2017-09-24 18:39 | Death Summary ---
Summary of Admission Date Sep 18, 2017 at 17:00 Date & Time of Sep 24, 2017. 1600 Cause of metastatic esophageal cancer Hospital Course admitted due to difficulty with pain/restlessness/agitation at home -admitted for pain control/comfort care -found to have CVA as probable acute worsening factor -patient required fairly aggressive measures to maintain comfort - despite efforts to fulfill initial plan for comfort at SNF - pt truly required IV morphine frequently for comfort, and IV ativan not infrequently -after several days of decline, it was clear that he was starting to enter actively dying phase, and was kept in the hospital for ongoing comfort, passed peacefully 07/25/18, 4p. updated, offered empathy and support last assessment and plan from 09/23 progress note: Unfortunate 67 y/o M Hx DM, HPL, metastatic esophageal CA. The pt transitioned to hospice care as an outpt but due to increased confusion, he could not be cared for by his and complained of suprapubic pain, he has an indweling Gillis, the catheter was changed. Pt was seen by his hospice service and maybe transferred to inpatient hospice encephalopathy, ct head with contrast to evaluate for metastatic disease unfortunately shows large posterior circulation stroke on right, strongly suspect this is the cause for his decline a few days prior to admission - especially since notes he abruptly worsened as would be pattern for CVA cerebral infarction present on admission - see above. no benefit to secondary risk reduction, hence no further w/u at this time. agrees pain - basal control improved - continue fentanyl at 25mcg for now. breakthrough - doing well on IV morphine, even at higher doses PO has not been adequate, supporting ongoing inpatient hospice stay restlessness - pain control as above; clonazepam when taking PO, ativan when needing to give IV, much more calm today abnormal UA - repeat Cx negative, stopped abx HPL, DM - will not be treated considering pt's hospice status
--- NOTE | 2017-11-07 08:07 | EDITING REQUIRED CODING QUERY ---
CODING QUERY To promote full compliance with coding requirements relating to patient care, provider participation is requested in all cases of pump stitcher uncertainty. Please assist us with the question(s) below: Coding Question(s): There is documentation that the patient was admitted due to pain and there is documentation of suprapubic pain with ?just pain due to pereira in place in some early Progress Notes but this is not documented in later Progress Notes or on the Discharge Summary. Please specify below, in your clinical opinion regarding the pain. ( ) Pain was Suprapubic pain likely due to the pereira causing the pain ( ) Pain was Suprapubic pain likely due to other cause: Specify ( ) Pain was Suprapubic pain with unknown likely cause (x ) Pain was other: Specify____see progress notes. It was difficult to determine. There certainly seemed to be an element of suprapubic pain related to the pereira catheter, but also he had a diffuse restlessness and pain overall - and due to his stroke before I assumed his care, as well as his overall rapidly declining status with the esophageal cancer, it truthfully was fairly difficult to determine all sources of his pain. I hope this helps clarify. Physician's Response(s): Thank you Renetta Garcia Principal Diagnosis: "_that condition established after study, to be chiefly responsible for occasioning the admission of the patient to the hospital for care." Co-Existing Principal Diagnosis: "_when two or more diagnoses equally meet the criteria for principal diagnosis as determined by the circumstances of admission, diagnostic work up, and/or therapy provided, and the Alphabetic Index, Tabular List, or another coding guideline does not provide sequencing direction, any one of the diagnoses may be sequenced first." "When the physician has documented what appears to be a current diagnosis in the body of the record, but has not included the diagnosis in the final diagnostic statement, the physician should be asked whether the diagnosis should be added." (Source [facility] 2 QTR90. p3-4)
== END 2017-09-24 17:45 | disposition expired | DRG 64 ==
LOC: C.EDB 17:03 → C.4E 21:36 → ENRESERV 21:48 → OBSVTOIN 09-18 17:00
PROVIDERS: ADMIT Internal Medicine; ATTEND Family Medicine
DX: I63.8 Other cerebral infarction (principal); G93.49 Other encephalopathy; T83.84XA Pain due to genitourinary prosthetic devices, implants and grafts, initial encounter; C15.5 Malignant neoplasm of lower third of esophagus; C78.7 Secondary malignant neoplasm of liver and intrahepatic bile duct; C78.00 Secondary malignant neoplasm of unspecified lung; C78.6 Secondary malignant neoplasm of retroperitoneum and peritoneum; R10.2 Pelvic and perineal pain; R52 Pain, unspecified; R45.1 Restlessness and agitation; G89.3 Neoplasm related pain (acute) (chronic); R39.89 Other symptoms and signs involving the genitourinary system; Z51.5 Encounter for palliative care; E86.0 Dehydration; R82.90 Unspecified abnormal findings in urine; E11.9 Type 2 diabetes mellitus without complications; Z79.899 Other long term (current) drug therapy; Z66 Do not resuscitate; Z93.6 Other artificial openings of urinary tract status; Z87.891 Personal history of nicotine dependence; Z88.5 Allergy status to narcotic agent; Z88.6 Allergy status to analgesic agent; Z83.3 Family history of diabetes mellitus; Z82.49 Family history of ischemic heart disease and other diseases of the circulatory system; Z84.89 Family history of other specified conditions; Y84.6 Urinary catheterization as the cause of abnormal reaction of the patient, or of later complication, without mention of misadventure at the time of the procedure